=== PATIENT | male | born 1960 | race Caucasian/White ===

== ENCOUNTER 2024-08-08 18:40 | Inpatient (IN) ==
--- OUTSIDE RECORDS SUMMARY | 2024-08-08 18:44 | External Medical Summary | Summary of Care ---
Author Name Unknown Organization [facility] Address [address] [place] [address] Phone [phone] Care Team Providers Care Supervisor [employer] Name Role Phone Raj POOLE MD, Felix Hu Primary Care Provider [phone] Reason for Visit * Reason Onset Date Comments Forms Request 07/24/2024 Pt Home care vis it to change dressing was put in place by [facility] with [facility] Home care to coincide with in 48hrs from todays visit. Encounter Details Date Type Department Care Team (Late st Contact Info) Description 07/24/2024 Telephone Family Practice [facility] [address] [place] [address] Felix Anthony III, MD [address] [place] [address] Forms Request (Pt Home care visit to duarte... Allergies Active Allergy Reactions Criticality Noted Date Comments Morphine And Codeine 06/01/2003 severe vomiting Phenytoin Sodium 06/11/2008 itching documented as of this encounter (statuses as of 08/05/2024) Medications Continuous Blood Gluc Embalmer Assistant (EtogasYLE KWAN 14 DAY READER) DEVIIndications: Uncontrolled type 2 diabetes mellitus with insulin therapy,Type 2 diabetes mellitus with hemoglobin A1c goal of less than 7.0% (HCC),Hypoglycem ia Use as directed. Use it to scan the sensor as directed at least 5-6 times a day. Dx: E11.65 1 Device 9 Active Continuous Blood Gluc Sensor (FREESTYLE KWAN 14 DAY SENSOR) MISCIndications: Uncontrolled type 2 diabetes mellitus with insulin therapy,Type 2 diabetes mellitus with hemoglobin A1c goal of less than 7.0% ([facility]),Hypoglycem ia Use as directed. Change sensor every 14 days to check your blood sugar at least 5-6 times a day. DX: E11.65 6 Each 3 9 Active Insulin Glargine Solostar 100 UNIT/ML Subcutaneous Solution Pen-injectorIndi cations:Type 2 diabetes mellitus with hemoglobin A1c goal of less than 7.0% ([facility]),Type 2 diabetes mellitus with diabetic neuropathy, unspecified whether usp insulin use ([facility]),Type 2 diabetes mellitus with diabetic neuropathy, without long-term current use of insulin ([facility]),Type 2 diabetes mellitus with diabetic neuropathy, with long-term current use of insulin ([facility]) INJECT 40 UNITS UNDER THE SKIN EVERY MORNING 45 mL 3 4 Active Insulin Aspart FlexPen 100 UNIT/ML Subcutaneous Solution Pen-injectorIndi cations:Type 2 diabetes mellitus with hemoglobin A1c goal of less than 7.0% ([facility]),Type 2 diabetes mellitus with diabetic neuropathy, unspecified whether long term care pharmacist insulin use ([facility]),Type 2 diabetes mellitus with diabetic neuropathy, without long-term current use of insulin ([facility]),Type 2 diabetes mellitus with diabetic neuropathy, with long-term current use of insulin ([facility]) INJECT 44 UNITS WITH BREAKFAST, 48 UNITS WITH LUNCH, AND 45 UNITS WITH DINNER PLUS CORRECTION SCALE DIRECTED. MAX DAILY DOSE: 160 UNITS 135 mL 3 4 Active Lisinopril-hydro CHLOROthiazide 20-12.5 MG Oral TabletIndication s:HTN, goal below 140/80 Take 1 Tablet by mouth in the morning. 90 Tablet 3 4 Active metFORMIN HCl ER 500 MG Oral Tablet Extended Release 24 Hour (Glucophage XR)Indications:T ype 2 diabetes mellitus with hemoglobin A1c goal of less than 7.0% ([facility]) TAKE TWO TABLETS BY MOUTH TWICE A DAY WITH MEALS 360 Tablet 3 4 Active Additional Information Patient not taking.Reported on 07/24/2024 Pen [place] 31G X 5 MMIndications:Ty pe 2 diabetes mellitus with hemoglobin A1c goal of less than 7.0% ([facility]),Type 2 diabetes mellitus with diabetic neuropathy, with long-term current use of insulin (HCC) Use as directed 4 times a day. To inject insulin. 400 Each 3 4 Active Rosuvastatin Calcium 10 MG Oral Tablet (Crestor)Indicat ions:Dyslipidemi a, goal LDL below 100 Take 1 Tablet by mouth in the morning. 90 Tablet 3 4 Active Trulicity 4.5 MG/0.5ML Subcutaneous Solution Auto-injector (Dulaglutide)Ind ications:Type 2 diabetes mellitus with hemoglobin A1c goal of less than 7.0% ([facility]) Inject 4.5 mg under the skin once a week. 2 mL 12 07/22/2024 12:03 PM EST 5 Active Sulfamethoxazole -Trimethoprim 800-160 MG Oral Tablet (Bactrim DS) Take 1 Tablet by mouth 2 times a day. 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 DYSLIPIDEMIA, GOAL LDL BELOW 100 05/10/2009 Overview (05/10/2009): Per Lipid Taxonomy. Type 2 diabetes mellitus wit h hemoglobin A1c goal of less than 7.0% 03/10/2009 Overview (09/20/2015): Modified per Diabetes protocol #14. 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 Diabetic polyneuropathy 06/01/2003 Overview (08/12/2015): ICD-10 update of inactive term Hemorrhoids, external without complications 10/2003 HEARING LOSS NOS- bilat hearing aids 06/01/2003 documented as of this encounter (statuses as of 08/05/2024) Resolved Problems Problem Noted Date Diagnosed Date Resolved Date Stage 3 chronic kidney disease 03/21/2021 01/09/2024 Overview: Per CKD protocol Severe obesity with body mas s index (BMI) of 35.0 to 39.9 with serious comorbidity 08/22/2009 Overview (03/12/2018): Per Obesity Taxonomy ICD-10 update of inactive diagnosis HTN, GOAL BELOW 130/80 04/19/200901/16 Overview (04/19/2009): Modified per HTN protocol #16. Convulsions 09/02/2008 05/05/2021 ADVANCE DIRECTIVE INFORMATION 12/10/2005 03/30/2024 Overview (12/10/2005): Pt has living will. Advised to bring copy at next visit. DM type 2, not at goal 10/03/200403/10 Overview (03/10/2009): Modified per Diabetes protocol #14. OBESITY, UNSPECIFIED 10/03/2004 010 Overview (08/22/2009): Per Obesity Taxonomy Type 2 diabetes mellitus wit h hemoglobin A1c goal of less than 7.0% 06/01/2003 08/07/2007 Overview (09/20/2015): ICD-10 update of inactive term PURE HYPERCHOLESTEROLEM 06/01/200304/26 Overview (05/10/2009): Per Lipid Taxonomy. HYPERTENSION NOS 06/01/2003 04/19/2009 Overview (04/19/2009): Modified per HTN protocol #16. documented as of this encounter (statuses as of 08/05/2024) Immunizations Name Administration Dates Next Due COVID-19 mRNA, LNP-s, No Pre serve, 2-Dose Series (Moderna) 07/08/2020,06/10/2020 PPD 04/01/2023,09/14/2009,06/14/2009 Pneumococcal Conjugate Vacc, 13 Valent (Prevnar) 04/11/2017 Pneumococcal Conjugate Vacci ne, 20-valent ([id number]) 04/14/2024 RSV Vac., Recomb, Adjuvant, PF,0.5 Ml (Arexvy) 07/24/2024 Seasonal Influenza Vac., MDV , IM, 0.5 mL (Fluzone) 02/23/2014,03/12/2013,03/01/2010,2007(Deferred: Patient Refused),03/11/2006 Seasonal Influenza, High Dos e, Trivalent, PF, IM (Fluzone HD) 04/14/2024 Seasonal Influenza, PF, 6 M & above, IM , (FluLaval or Fluzone) 04/01/2023,05/29/2022,03/21/2021,2019,06/23/2018,06/11/2016,02/10/2016 Seasonal Influenza, Recombin ant, RIV4, PF, (Flublock) 03/12/2019 TDAP (age 10 and older)(Boostrix) 04/06/2013 TDAP, Age 7 and older, IM (Adacel) 02/21/2022 Zoster Vaccine Recombinant (Shingrix) 04/01/2023 documented as of this encounter Social History Tobacco Use Types Packs/Day Years Used Date Smoking Tobacco: Never Smokeless Tobacco: Never Alcohol Use Standard Drinks/Week Comments No 0 (1 standard drink = 0.6 oz pur e alcohol) PHQ-2 Answer Date Recorded PHQ Adult Total Score 0 07/24/2024 Hunger Vital Sign Answer Date Recorded Within the past 12 months, y ou worried that your food would run out before you got the money to buy more. Never true 07/24/19 25 Within the past 12 months, t he food you bought just didn't last and you didn't have money to get more. Never true 07/24/2024 Childcare Answer Date Recorded Do you feel overwhelmed with taking care of a child, family member or friend? No 07/24/2024 Does your family need help f inding childcare? (Household - for ages 0-17 years) Not on file 07/24/2024 Clothing Answer Date Recorded Have you been unable to get clothing when it was really needed? Yes 07/24/2024 Is your family able to get c lothes or diapers when needed? (Household - for ages 0-17 years) Not on file 07/24/2024 Personal Safety Answer Date Recorded Do you feel unsafe or have concerns for your saf ety? No 07/24/2024 Do you have concerns for you r family's safety? (Household - for ages 0-17 years) Not on file 07/24/2024 Utilities Answer Date Recorded Do you have trouble paying y our heating, water, or electric bill? No 07/24/2024 Is your family able to pay t he heat, water, or electric bill? (Household - for ages 0-17 years) Not on file 07/24/2024 Does your family have access to good internet? (Household - for ages 0-17 years) Not on file 07/24/2024 Employment Status Answer Date Recorded Are you unemployed or without regular income? No 07/24/2024 Does the household have a re gular source of income? (Household - for ages 0-17 years) Not on file 07/24/2024 Social Connections Answer Date Recorded How often do you feel lonely or isolated from th ose around you? Never 07/24/2024 Financial Resource Strain Answer Date R ecorded Do you have any trouble payi ng for your medications, or do you think you might in the future? No 07/24/2024 Does your family have troubl e paying for medicine? (Household - for ages 0-17 years) Not on file 07/24/2024 Transportation Needs Answer Date Record ed Do you have trouble getting a ride to medical visits or work? (Adult - for ages 18 years and over) Not on file 07/24/2024 Does your family have a hard time getting a ride to doctors visits? (Household - for ages 0-17 years) Not on file 07/24/2024 Has lack of transportation k ept you from medical appointments, meetings, work, or from getting things needed for daily living? Check all that apply. No 07/24/2024 Do you (or your family) have trouble finding or paying for a ride (transportation)? (Household - for ages 0-17 years) Not on file 07/24/2024 Housing Stability Answer Date Recorded Do you currently live in a s helter or have no steady place to sleep at night? No 07/24/2024 Do you think you are at risk of becoming homeless? (Adult - for ages 18 years and over) Not on file 07/24/2024 Does your family worry about paying for your home or becoming homeless? (Household - for ages 0-17 years) Not on file 0 07/24/2024 Are you homeless or worried that you might be in the future? No 07/24/2024 Are you (or your family) suly eless or worried that you might be in the future? (Household - for ages 0-17 years) Not on file Food Insecurity Answer Date Recorded Within the past 12 months, y ou worried that your food would run out before you got the money to buy more. Never true 07/24/19 25 Within the past 12 months, t he food you bought just didn't last and you didn't have money to get more. Never true 07/24/2024 Do you need food for this week? No 07/24/2024 Sex and Gender Information Value Date Recorded Sex Assigned at Male 01/29/2023 3:07 PM EDT Legal Sex Male 6:14 AM EST Gender Identity Male 01/29/2023 3:07 PM EDT Sexual Orientation Straight 01/29/2023 3: 07 PM EDT Occupation Industry Job Start Date Job End Date Not on file Not on file Not on file Not on file documented as of this encounter Miscellaneous Notes * Telephone Encounter - Piyush Kaur CMA - 07/24/2024 11:30 AM EST Pt presented with a dressed wound on a toe on his left foot that was cleaned and dressed. Pt statedthat he was treated on 07/22/24 at [facility]. Pt stated that he was told an order would be put in place to have his dressing changed but did no hear anything from the Home care agency as of yet. Dr. Anthony asked that we inquire when those services would be put in place to which I called [facility] and was told that [facility] home care would be providing the service. I then called [facility] and was told their intake dept just received that order and it would be put in place with in 48hrs. documented in this encounter Plan of Treatment Upcoming Encounters Date Type Department Care Team (Late st Contact Info) Description 08/17/2024 9:30 AM EDT Telemedicine Pharmacy, [facility] [address] [facility] [place] [address] Pharmacist1, [facility] [address] [facility] [place] [address] 01/26/2025 9:00 AM EDT Office Visit Pharmacy, [facility] [address] [facility] [place] [address] Pharmacist1, [facility] [address] [place] [address] 01/26/2025 9:40 AM EDT Office Visit Family Practice [facility] [address] [facility] [place] [address] Felix Anthony III, MD [address] [facility] [place] [address] Health Maintenance Due Date Last Done Comments HIV Screening 1975 Colonoscopy 01/22/2004 Fecal Occult Blood Test 01/22/2004 Sigmoidoscopy 01/22/2004 Diabetic Foot Exam 01/19/2023 01/19/2022, 0 06/13/2010, 09/14/2009, Additional history exists Zoster Vaccines (2 of 2) 05/27/2023 04/01/2023 COVID-19 Vaccine ( season) 2024 07/08/2020, 06/10/2020 Diabetic Eye Exam 12/15/2024 12/16/2023, , 12/16/2023, Additional history exists Albumin/Creatinine Ratio 01/01/2025 024, 08/27/2022, 06/04/2022, Additional history exists B-12 01/01/2025 01/02/2024, 01/2023, 03/21/2021 CKD PHOS USE SMARTSET 54500 01/01/2025 080 12/2023, 06/04/2022, 10/18/2021 GFR 01/19/2025 07/22/2024, 0 12/2023, 08/27/2022, Additional history exists HbA1c 01/19/2025 07/22/2024, 03/27, 01/02/2024, Additional history exists CKD HGB USE SMARTSET 85104 07/22/202507/22, 01/02/2024, 06/04/2022, Additional history exists Depression Screening 07/24/2025 07/24/2024 Cologuard 05/12/2027 05/12/2024, 04/26, 05/05/2024, Additional history exists Colorectal Cancer Screening 05/12/2027 Lipid Panel 01/01/2029 01/02/2024, 01/2023, 03/21/2021, Additional history exists DTap/Tdap Vaccines (3 - Td or Tdap) 02/22/2032 02/21/2022, 04/06/2013, 05/27/2004 Influenza Vaccine (FLU shot) Completed , 04/01/2023, 05/29/2022, Additional history exists Pneumococcal Vaccine: 50+ Years Completed 04/14/2024, 04/11/2017, 05/24/2003 HPV (Gardasil) Vaccine Aged Out No lo nger eligible based on patient's age to complete this topic Hepatitis B Vaccine Aged Out No longe r eligible based on patient's age to complete this topic MENINGOCOCCAL (MENACTRA/MENVEO) Aged Out No longer eligible based on patient's age to complete this topic Meningitis B Vaccine (Bexsero/Trumemba) Aged Out No longer eligible based on patient's age to complete this topic documented as of this encounter Medical Devices Not on filedocumented as of this encounter Care Teams Supervisor [employer] Relationship Specialty Start Date End Date Felix Anthony III, MD [address] [place] [address] PCP - General Family Medicine 03/21/21 documented as of this encounter
--- OUTSIDE RECORDS SUMMARY | 2024-08-08 18:44 | External Medical Summary | Summary of Care ---
Author Name Unknown Organization [facility] Address [address] [place] [address] Phone [phone] Care Team Providers Care Wheelage Clerk Name Role Phone Raj POOLE MD, Felix Hu Primary Care Provider [phone] Encounter Details Date Type Department Care Team (Late st Contact Info) Description 08/03/2024 Orders Only Outcomes Research Department [address] [place] [address] Princess Alanis [facility] [employer] Other*[id number] Allergies Active Allergy Reactions Criticality Noted Date Comments Morphine And Codeine 06/01/2003 severe vomiting Phenytoin Sodium 06/11/2008 itching documented as of this encounter (statuses as of 08/03/2024) Medications Continuous Blood Gluc Bond Trader (FREESTYLE KWAN 14 DAY READER) DEVIIndications: Uncontrolled type [...] than 7.0% (HCC),Hypoglycem ia Use as directed. Change sensor every 14 days to check your blood sugar at least 5-6 times a day. DX: E11.65 6 Each 3 9 Active Insulin Glargine Solostar 100 UNIT/ML Subcutaneous Solution Pen-injectorIndi cations:Type 2 diabetes mellitus with hemoglobin A1c goal of less than 7.0% ([facility]),Type 2 diabetes mellitus with diabetic neuropathy, unspecified whether terminal superintendent insulin use ([facility]),Type 2 diabetes mellitus with diabetic neuropathy, without long-term current use of insulin ([facility]),Type 2 diabetes mellitus with diabetic neuropathy, with long-term current use of insulin ([facility]) INJECT 40 UNITS UNDER THE SKIN EVERY MORNING 45 mL 3 4 Active Insulin Aspart FlexPen 100 UNIT/ML Subcutaneous Solution Pen-injectorIndi cations:Type 2 diabetes mellitus with hemoglobin A1c goal of less than 7.0% ([facility]),Type 2 diabetes mellitus with diabetic neuropathy, unspecified whether senior living insulin use ([facility]),Type 2 diabetes mellitus with diabetic neuropathy, without long-term current use of insulin ([facility]),Type 2 diabetes mellitus with diabetic neuropathy, with long-term current use of insulin ([facility]) INJECT 44 UNITS WITH BREAKFAST, 48 UNITS [...] hemoglobin A1c goal of less than 7.0% ([facility]) TAKE TWO TABLETS BY MOUTH TWICE A DAY WITH MEALS 360 Tablet 3 4 Active Additional Information Patient not taking.Reported on 07/24/2024 Pen [place] 31G X 5 MMIndications:Ty pe 2 diabetes mellitus with hemoglobin A1c goal of less than 7.0% ([facility]),Type 2 diabetes mellitus with diabetic neuropathy, with long-term current use of insulin ([facility]) Use as directed 4 times a day. To inject insulin. 400 Each 3 4 Active Rosuvastatin Calcium 10 MG Oral Tablet (Crestor)Indicat ions:Dyslipidemi a, goal LDL below 100 Take 1 Tablet by mouth in the morning. 90 Tablet 3 4 Active Trulicity 4.5 MG/0.5ML Subcutaneous Solution Auto-injector (Dulaglutide)Ind ications:Type 2 diabetes mellitus with hemoglobin A1c goal of less than 7.0% (HCC) Inject 4.5 mg under the skin once a week. 2 mL 12 07/22/2024 12:03 PM EST 5 Active Sulfamethoxazole -Trimethoprim 800-160 MG Oral Tablet (Bactrim DS) Take 1 Tablet by mouth 2 times a day. 14 Tablet 07/22/2024 12:03 PM EST 5 Active LORazepam 0.5 MG Oral Tablet (Ativan) Take 1 Tablet by mouth 2 times a day as needed for Anxiety. One tablet 45 minutes before MRI 2 Tablet 5 Active documented as of this encounter (statuses as of 08/03/2024) Active Problems Problem Noted Date Diagnosed Date [...] as of this encounter (statuses as of 08/03/2024) Resolved Problems Problem Noted Date Diagnosed Date [...] as of this encounter (statuses as of 08/03/2024) Immunizations Name Administration Dates Next Due COVID-19 mRNA, LNP-s, No Pre serve, 2-Dose Series (Moderna) 07/08/2020,06/10/2020 PPD 04/01/2023,09/14/2009,06/14/2009 Pneumococcal Conjugate Vacc, 13 Valent (Prevnar) 04/11/2017 Pneumococcal Conjugate Vacci ne, 20-valent ([id number]) 04/14/2024 RSV Vac., Recomb, Adjuvant, PF,0.5 Ml [...] No 07/24/2024 Does the household have a [facility] source of income? (Household - for ages [...] on file documented as of this encounter Plan of Treatment Upcoming Encounters Date Type Department Care Team (Late st Contact Info) Description 08/17/2024 9:30 AM EDT Telemedicine Pharmacy, [facility] [address] [place] [address] Pharmacist1, [facility] [address] [place] [address] 01/26/2025 9:00 AM EDT Office Visit Pharmacy, [facility] [address] [facility] [address] [place] [address] Pharmacist1, [facility] [address] [facility] [place] [address] [address] 01/26/2025 9:40 AM EDT Office Visit Family Practice [facility] [address] [facility] [place] [address] Felix Anthony III, MD [address] [facility] [place] [address] Scheduled Orders Name Type Priority Associated Diagnoses Orde r Schedule MYCODE SUBSEQUENT ADULT Lab Routine MyCode Research Other*[id number] Every 6 Months for 2 Occurrences starting 08/03/2024 until 08/23/2025 Health Maintenance Due Date Last Done Comments HIV Screening 1975 Colonoscopy 01/22/2004 Fecal Occult Blood Test 01/22/2004 Sigmoidoscopy 01/22/2004 Diabetic Foot Exam 01/19/2023 01/19/2022, 0 06/13/2010, 09/14/2009, Additional history exists Zoster Vaccines (2 of 2) 05/27/2023 04/01/2023 COVID-19 Vaccine ( season) 2024 07/08/2020, 06/10/2020 Diabetic Eye Exam 12/15/2024 12/16/2023, , 12/16/2023, Additional history exists Albumin/Creatinine Ratio 01/01/2025 082 024, 08/27/2022, 06/04/2022, Additional history exists B-12 01/01/2025 01/02/2024, 01/2023, 03/21/2021 CKD PHOS USE SMARTSET 85777 01/01/2025 080 12/2023, 06/04/2022, 10/18/2021 GFR 01/19/2025 07/22/2024, 12/2023, 08/27/2022, Additional history exists HbA1c 01/19/2025 07/22/2024, 03/27, 01/02/2024, Additional history exists CKD HGB USE SMARTSET 56102 07/22/202507/225, 01/02/2024, 06/04/2022, Additional history exists Depression Screening [...] Not on filedocumented as of this encounter Visit Diagnoses Diagnosis MyCode Research Other*[id number] documented in this encounter Care Teams Wheelage Clerk Relationship Specialty Start Date End Date Felix Anthony III, MD [address] [place] [address] PCP - General Family Medicine 03/21/21 documented as of this encounter
--- NOTE | 2024-08-08 18:58 | Emergency Department Note ---
History of Present Illness General Chief complaint: Toe Injury/Pain Stated complaint: LT FOOT TOE INFECTION Time Seen by Provider: 08/08/24 18:46 History of Present Illness Maximum Pain Intensity: 9 This is a 64-year-old male who presents to the emergency department via private vehicle with complaints of "left second toe infection". The patient notes bone infection to the distal left second toe with need for likely partial amputation. He has been following locally with podiatry. He was last seen this past . He notes he did finish a course of oral antibiotics. No current oral antibiotic therapy. He notes today he developed chills throughout much of the day and then this afternoon began vomiting. He feels overall unwell. He notes progressive pain and swelling to the left second toe. The entire toe he notes is now red. He states that there is an open wound to the distal toe that the bone is visible through this opening. He states that on recent visit some small pieces of bone were sampled and sent for evaluation. He is a diabetic. He denies any known antibiotic allergies. Tetanus vaccine up-to-date per review of the EMR. Home Medications Medication Instructions Recorded Confirmed Type rosuvastatin 10 mg tablet 10 mg PO QAM 09/10/22 08/08/24 History insulin glargine 100 unit/mL 50 unit subcut QAM 12/10/23 08/08/24 History subcutaneous solution (Lantus U-100 Insulin) dulaglutide 4.5 mg/0.5 mL 4.5 mg subcut WK 08/08/24 08/08/24 History subcutaneous pen injector (Trulicity) insulin aspart U-100 100 unit/mL See Rx Instructions .Route .COMPLEX 08/08/24 08/08/24 History (3 mL) subcutaneous pen lisinopril 20 1 tab PO QAM 08/08/24 08/08/24 History mg-hydrochlorothiazide 12.5 mg tablet Allergies Allergy/AdvReac Type Severity Reaction Status Date / Time codeine AdvReac Mild GI UPSET Verified 08/08/24 19:48 acetaminophen [From Percocet] AdvReac Itching Verified 08/08/24 19:48 morphine AdvReac Vomiting Verified 08/08/24 19:48 oxycodone [From Percocet] AdvReac Itching Verified 08/08/24 19:48 Past Med/Surg History Problem List (Updated 08/08/24 @ 19:22 by Reynaldo Napier PA-C) Osteomyelitis of second toe of left foot (Acute) Cellulitis of second toe of left foot (Acute) Chronic venous insufficiency Abnormal ankle brachial index (Acute) Open wound of right lower leg (Acute) No significant past surgical history HTN (hypertension) (Chronic) DM (diabetes mellitus) (Chronic) Persistent vomiting (Acute) Vertigo (Acute) Medical History 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 Surgical History History of laparoscopic appendectomy Social History Smoking Status: Never smoker Do You Dip or Chew Tobacco: No; Hx Alcohol Use: Yes Alcohol type: beer Hx Substance Use: No Preferred Language: [place] Communication Ability: Effective Hearing Ability: Normal 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 Beliefs That Will Affect Care: None marital status: Current Living Situation: Spouse current occupational status: retired Other Information That Helps Us Care for You: No Feels Safe at Home: Yes Safety Concerns: Feels Safe At This Time Diet: regular caffeine: Yes during the past year weight has: decreased > 10 lbs Physical Activity Frequency: Does not Exercise Assistive Devices: Hearing Aid - Bilateral Review of Systems A total of 10 systems reviewed and were otherwise negative Physical Exam Vital Signs Vital Signs - 24 hr 08/08/24 18:42 08/08/24 20:40 Temperature 36.9 C Temperature Source Temporal Artery Scan Pulse Rate 97 H Pulse Rate [Finger] 91 H Respiratory Rate 16 18 Respiratory Effort / Characteristics Non-Labored Spontaneous Respiratory Depth Normal Blood Pressure 154/77 H Blood Pressure [Right Arm] 173/83 H Blood Pressure Mean 102 Blood Pressure Mean [Right Arm] 113 Pulse Oximetry 95 91 Oxygen Delivery Method Room Air Room Air Sepsis Recent Fever Within 48 Hours No Sepsis New/Unexplained Change in Mental Status No Sepsis Action Taken by Nursing No Action Required VITAL SIGNS - Vital signs and nursing notes were reviewed. Stable and afebrile. GENERAL -64-year-old male appearing his stated age who is in no acute distress. Communicates well with provider and answers questions appropriately. SKIN -left second toe is erythematous with an opening at the distalmost aspect consistent with ulceration with visible bone in this opening. Pictures were obtained and uploaded to the EMR and are as below. HEAD - NC/AT. EYES - Sclera anicteric. NECK - Neck with FROM. No nuchal rigidity. LUNGS - CTA CARDIAC - RRR ABDOMEN - Abdominal contour normal without pulsations or visible masses. BS normoactive all four quadrants. No tenderness, palpable masses, hepatosplenomegaly, or ascites noted. EXTREMITIES - No clubbing or peripheral cyanosis. Left second toe diffusely erythematous and edematous with a distal ulcer with visible bone deep in the channel. +5/5 strength noted in UE/LE bilaterally. NEUROLOGIC -decreased sensation to the bilateral feet region. PSYCH -alert, oriented and pleasant on exam Course Administered Medications Lisinopril/HCTZ (Lisinopril/Hctz 20/12.5mg 1 Tab Tab) 1 tab PO QAM NAYELI Stop: 09/08/24 08:59 Last Admin: 08/09/24 09:06 Dose: 1 tab Documented By: AMY Hydromorphone HCl (Hydromorphone Inj 0.5 Mg/0.5 Ml Syr) 0.5 mg IV Q6H PRN PRN Reason: Severe Pain (Scale 7, 8, 9,10) Stop: 08/22/24 22:12 Last Admin: 08/09/24 04:14 Dose: 0.5 mg Documented By: Admin: 08/08/24 22:53 Dose: 0.5 mg Documented By: EMELY Sodium Chloride (Nss) 1,000 mls @ 125 mls/hr IV .Q8H NAYELI Stop: 08/09/24 22:12 Last Admin: 08/09/24 10:07 Dose: 125 mls/hr Documented By: Infusion: 08/09/24 10:07 Dose: Infused Documented By: Admin: 08/08/24 22:52 Dose: 125 mls/hr Documented By: EMELY Cefepime HCl (Maxipime 2000mg) 2,000 mg in 20 mls @ 5 mls/min IV Q12H NAYELI; Protocol Stop: 08/16/24 07:59 Last Admin: 08/09/24 08:04 Dose: 5 mls/min Documented By: HRJada Vancomycin HCl (Vancomycin Hcl) 1,000 mg in 270 mls @ 200 mls/hr IV Q12H NAYELI; Protocol Stop: 08/16/24 09:59 Last Admin: 08/09/24 10:14 Dose: 200 mls/hr Documented By: HRB Magnesium Sulfate/Dextrose (Magnesium Sulfate / D5w) 1 gm in 100 mls @ 50 mls/hr IV Q2H NAYELI Stop: 08/09/24 11:59 Last Admin: 08/09/24 10:12 Dose: 50 mls/hr Documented By: Infusion: 08/09/24 10:12 Dose: Infused Documented By: Admin: 08/09/24 08:13 Dose: 50 mls/hr Documented By: HRB Promethazine HCl (Phenergan) 12.5 mg in 50.5 mls @ 202 mls/hr IV Q6H PRN PRN Reason: Nausea And Vomiting Stop: 09/08/24 08:21 Last Infusion: 08/09/24 09:40 Dose: Infused Documented By: Admin: 08/09/24 09:21 Dose: 202 mls/hr Documented By: HRB Insulin Aspart (Insulin Aspart Per Unit Charge) 0 units SC Q6 [facility] Stop: 09/08/24 00:00 Last Admin: 08/09/24 05:52 Dose: Not Given Documented By: Admin: 08/09/24 00:08 Dose: Not Given Documented By: CLARAM Insulin Glargine (Lantus Per Unit Charge) 25 units SQ DAILY [facility] Stop: 09/08/24 08:59 Last Admin: 08/09/24 09:02 Dose: 25 units Documented By: HRB Co-signed By: JENNIFER Ondansetron HCl (Ondansetron Inj 2 Mg/Ml 2 Ml Vial) 4 mg IV Q6H PRN PRN Reason: Nausea Stop: 09/07/24 22:12 Last Admin: 08/09/24 06:13 Dose: 4 mg Documented By: Admin: 08/08/24 22:52 Dose: 4 mg Documented By: EMELY Rosuvastatin Calcium (Rosuvastatin Calcium 10 Mg Tab) 10 mg PO QAM [facility] Stop: 09/08/24 08:59 Last Admin: 08/09/24 09:07 Dose: 10 mg Documented By: HRB Discontinued Medications Hydromorphone HCl (Hydromorphone Inj 0.5 Mg/0.5 Ml Syr) 0.25 mg IV NOW STA Stop: 08/08/24 18:55 Last Admin: 08/08/24 19:33 Dose: 0.25 mg Documented By: WALKER Hydromorphone HCl (Hydromorphone Inj 0.5 Mg/0.5 Ml Syr) 0.25 mg IV NOW STA Stop: 08/08/24 20:27 Last Admin: 08/08/24 20:30 Dose: 0.25 mg Documented By: GAYLE Cefepime HCl (Maxipime 2000mg) 2,000 mg in 20 mls @ 5 mls/min IV NOW STA; Protocol Stop: 08/08/24 18:55 Last Admin: 08/08/24 19:40 Dose: 5 mls/min Documented By: WALKER Vancomycin HCl 2,250 mg/ (Sodium Chloride) 545 mls @ 200 mls/hr IV NOW ONE Stop: 08/09/24 02:28 Last Infusion: 08/09/24 04:11 Dose: Infused Documented By: Admin: 08/09/24 01:07 Dose: 200 mls/hr Documented By: EMELY Insulin Aspart (Insulin Aspart Per Unit Charge) 0 units SC ACHS NAYELI Stop: 09/07/24 23:29 Last Admin: 08/08/24 23:44 Dose: Not Given Documented By: EMELY Miscellaneous (Patient's Height &/Or Weight Needed) 1 each N/A NOW STA Stop: 08/08/24 22:49 Last Admin: 08/08/24 23:44 Dose: Not Given Documented By: EMELY Ondansetron HCl (Ondansetron Inj 2 Mg/Ml 2 Ml Vial) 4 mg IV NOW STA Stop: 08/08/24 18:55 Last Admin: 08/08/24 19:33 Dose: 4 mg Documented By: WALKER Medical Decision Making Laboratory Data 08/09/24 05:47 08/09/24 05:47 Lab Results 08/08/24 Range/Units 19:31 WBC 9.02 (4.8-10.8) K/ul RBC 4.81 (4.70-6.10) M/uL Hgb 13.9 L (14.0-18.0) g/dl Hct 41.7 L (42.0-52.0) % MCV 86.7 (80.0-100.0) fL MCH 28.9 (25.0-34.0) pg MCHC 33.3 (32.0-36.0) g/dL RDW Std Deviation 43.5 (36.4-46.3) fL RDW Coeff of Miguel 13.9 (11.5-14.5) % Plt Count 115 L (130-400) K/uL MPV 11.9 (9.4-12.4) fL Immature Gran % (Auto) 0.3 % Neut % (Auto) 89.6 % Lymph % (Auto) 3.8 % [place] % (Auto) 4.2 % Eos % (Auto) 1.7 % Baso % (Auto) 0.4 % Neut # (Auto) 8.08 H (1.40-6.50) K/uL Lymph # (Auto) 0.34 L (1.20-3.40) K/uL [place] # (Auto) 0.38 (0.11-0.59) K/uL Eos # (Auto) 0.15 (0.00-0.50) K/uL Baso # (Auto) 0.04 (0.00-0.20) K/uL Immature Gran # (Auto) 0.03 (0.01-0.20) K/uL ESR 57 H (0-20) mm/hr Sodium 138 (136-145) mmol/L Potassium 4.8 (3.5-5.1) mmol/L Chloride 109 H (98-107) mmol/L Carbon Dioxide 22 (21-32) mmol/L Anion Gap 7 (3-11) BUN 55 H (6-23) mg/dl Creatinine 1.69 H (0.6-1.4) mg/dl Est Cr Clr Drug Dosing Not Reportable eGFR 44.50 BUN/Creatinine Ratio 32.5 H (10-20) Glucose 115 H (70-99(Fasting)) mg/dl Lactate 1.4 (0.4-2.0) mmol/L Calcium 9.5 (8.6-10.3) mg/dl Total Bilirubin 1.0 (0.2-1.0) mg/dl AST 63 H (13-39) U/L ALT 65 H (7-52) U/L Alkaline Phosphatase 92 (34-104) U/L C-Reactive Protein 5.67 H (0-0.5) mg/dl Total Protein 8.0 (6.0-8.3) gm/dl Albumin 4.0 (3.4-5.0) gm/dl Globulin 4.0 (2.5-4.0) gm/dl Albumin/Globulin Ratio 1.0 (0.9-2) Procalcitonin 0.57 H (0-0.5) ng/ml Imaging Data Radiologist's Impression: Foot X-Ray 08/08/24 18:52 Exam(s): XR LEFT FOOT, 3+ views EXAM: XR Left Foot Complete, 3 or More Views CLINICAL HISTORY: L 2nd toe infection. TECHNIQUE: Frontal, lateral and oblique views of the left foot. COMPARISON: No relevant prior studies available. FINDINGS: Soft tissue swelling surrounding distal aspect of the second digit. Demineralized distal phalanx greatest at the distal tuft and proximal metaphysis, consistent with osteomyelitis. Deformity of the mid diaphysis of the fifth metatarsal consistent with a chronic fracture. No acute fracture. Plantar calcaneal bone spur. Vascular calcifications. IMPRESSION: Soft tissue swelling surrounding distal aspect second digit consistent with cellulitis. Underlying partial destruction of the distal phalanx consistent with osteomyelitis. Old fracture mid diaphysis of the fifth metatarsal. Electronically signed by: Rocael Osorio M.D. 08/09/24 00:23 AM MDM Narrative Patient was seen and evaluated as above in room D03b. Review was performed of triage nursing notes and vital signs. I did review pertinent previous visits and patient history. After obtaining a thorough history and physical examination the above work up was performed. Patient presents for evaluation of ongoing left second toe issue noting now diffuse redness to the entire toe and significant pain. He notes the pain is the worst it has been. Today he developed chills and now vomiting. On my assessment there is a cellulitic toe with exposed bone distally. I am concerned that the patient's symptoms are all related to left second toe infection. Options of care were discussed with the patient. IV access with established. Labs were drawn. Left foot x-ray per my interpretation does reveal fragmentation and erosion of the left second toe concerning for osteomyelitis. I did review previous cultures. At 1 point he did grow out Pseudomonas from wounds as well as Staph aureus among other microbes per review of the EMR. These cultures for review appear to have been from the right leg. These are dated 2022 and 2023. Unfortunately, there is no discharge at this time from the toe or drainage to culture. Blood culture pending. For the present time I will cover with IV cefepime. I did review pathology report dated 07/30/2024 from specimen dated 07/29/2024. Final diagnosis from the L2nd toe bone biopsy was acute osteomyelitis and osteonecrosis. Patient denies any history of MRSA. I did order Dilaudid for pain (believes he has no reaction to this medication), Zofran for nausea. The patient certainly would benefit from hospitalization, IV antibiotic therapy. He may also require operative management. I did list the help of our pharmacy district manager to review the [facility] EMR for additional helpful visits. There was a skin document regarding patient's visit with podiatry dated 07/30/2024. Unfortunately this appears to be the newest visit available for review in the EMR but the patient notes he was seen this past . I discussed presentation with the hospitalist, Dr. Solorzano at 7:26 PM. Please refer to further documentation regarding his stay. GCS: 15 In the evaluation and treatment of this patient the following differential diagnoses were entertained: Cellulitis, osteomyelitis, necrotizing fasciitis, sprain, strain, fracture, among others. Impression & Plan Cellulitis of second toe of left foot, Osteomyelitis of second toe of left foot Discharge Plan Visit Data Chief Complaint: Toe Injury/Pain Stated Complaint: LT FOOT TOE INFECTION ED Provider: Eden Nick ED Midlevel Provider: Reynaldo Napier Discharge Problem: Cellulitis of second toe of left foot, Osteomyelitis of second toe of left foot Patient Disposition: Admitted As Inpatient Condition: Good Discharge Instructions Interventions: ED Discharge Assessment Last Done: 08/08/24 21:48
--- NOTE | 2024-08-08 19:05 | Emergency Department Note ---
ED Visit Note I was consulted by the Advanced Practice Provider, Reynaldo Napier PA-C. I performed a substantive portion of the visit. This includes aspects of: History: Patient is a 64-year-old male presenting with left second toe pain. Patient reports he has been following locally with podiatry for his left distal second toe infection. He states he was last seen this past and just finished a course of oral antibiotics. He is not currently on outpatient antibiotic therapy. He states that he has had chills and began vomiting today. He states he feels overall unwell. Reports increasing pain and swelling to the second left great toe. Patient is a type I diabetic. MDM: - Laboratory workup interpreted myself showed normal WBC; stable electrolytes; transaminitis (AST 63; ALT 65); elevated creatinine (Cr 1.69); thrombocytopenia (plt 115); normal lactate; elevated procalcitonin (0.57) - Toe appears infected and concern for osteomyelitis. Blood cultures were obtained. Patient was given 4 mg IV Zofran, 0.25 mg IV Dilaudid and started on IV cefepime. Will be admitted to hospitalist service for further evaluation and management. .
[2024-08-08] MEDS: HYDROmorphone INJ 0.5 MG/0.5 ML SYR IV STA ×2 (19:33→20:30)
[2024-08-08] MEDS: ONDANSETRON INJ 2 MG/ML 2 ML VIAL IV STA (19:33)
[2024-08-08] MEDS: CEFEPIME 2000MG 2,000 MG/20 ML SYR IV STA (19:40)
[2024-08-08 19:50] LABS: Basophils # (auto) 0.04 K/uL (0.00-0.20); Basophils % (auto) 0.4 %; Eosinophils # (auto) 0.15 K/uL (0.00-0.50); Eosinophils % (auto) 1.7 %; Hematocrit (blood only) 41.7 % (42.0-52.0); Hemoglobin 13.9 g/dl (14.0-18.0); Immature Granulocytes # (auto) 0.03 K/uL (0.01-0.20); Immature Granulocytes % (auto) 0.3 %; Lymphocytes # (auto) 0.34 K/uL (1.20-3.40); Lymphocytes % (auto) 3.8 %; Mean Corpuscular Hemoglobin 28.9 pg (25.0-34.0); Mean Corpuscular Hgb Conc 33.3 g/dL (32.0-36.0); Mean Corpuscular Volume 86.7 fL (80.0-100.0); Mean Platelet Volume 11.9 fL (9.4-12.4); Monocytes # (auto) 0.38 K/uL (0.11-0.59); Monocytes % (auto) 4.2 %; Neutrophils # (auto) 8.08 K/uL (1.40-6.50); Neutrophils % (auto) 89.6 %; Platelet Count 115 K/uL (130-400); RDW Coefficient of Variation 13.9 % (11.5-14.5); RDW Standard Deviation 43.5 fL (36.4-46.3); Red Blood Count 4.81 M/uL (4.70-6.10); White Blood Count 9.02 K/ul (4.8-10.8)
[2024-08-08 20:04] LABS: Alanine Aminotransferase 65 U/L (7-52); Alkaline Phosphatase 92 U/L (34-104); Anion Gap 7 (3-11); Aspartate Aminotransferase 63 U/L (13-39); BUN Creatinine Ratio 32.5 (10-20); Blood Urea Nitrogen 55 mg/dl (6-23); Calcium 9.5 mg/dl (8.6-10.3); Carbon Dioxide 22 mmol/L (21-32); Chloride 109 mmol/L (98-107); Glucose 115 mg/dl (70-99(Fasting)); Potassium 4.8 mmol/L (3.5-5.1); Sodium 138 mmol/L (136-145)
--- NOTE | 2024-08-08 21:43 | History & Physical Report ---
Date of Service August 08, 2024 Assessment & Plan (1) Osteomyelitis of second toe of left foot: Plan: 64-year-old male with past med history significant for type 2 diabetes, diabetic polyneuropathy, dyslipidemia, diabetic retinopathy, CKD stage III, hypertension, left foot drop, bilateral hearing loss and on hearing aids, left eye cataract, thrombocytopenia, varicose veins of left lower extremity presents with ongoing infection of left second toe. Patient says having this infection ongoing for 3 weeks. Following with podiatry. Finished Bactrim course a week ago. Was feeling better this week, even went for bowling on Saturday and Saturday. But today he started have a lot of pain in the left second toe and was having chills and nausea and was not feeling better so came to the ER today. Patient also seems to have biopsy of the site on July 30 and pathology in our system showing osteomyelitis and osteonecrosis. Denies any chest pain. No shortness of breath. No cough. No headache. No runny nose or sore throat. No abdominal pain. Normal bowel and bladder movements. Hemodynamics are okay. 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 Osteomyelitis of second toe of left foot Diabetic foot infection Previous cultures grew staph and Pseudomonas Empirically started on cefepime and vancomycin with renal dosing N.p.o. after midnight for now Fluids Pain control Podiatry consult in a.m. for further recommendation Diabetes Cuting long-acting insulin to 25 units a.m. as currently on p.o. Sliding scale Glycemic pharmacy consults Will follow HbA1c levels Hypertension On lisinopril and hydrochlorothiazide Will monitor CKD stage III Creatinine 1.6 seems to be around baseline Will follow labs Dyslipidemia On rosuvastatin Thrombocytopenia Platelets 115 Will monitor DVT prophylaxis SCDs Disposition Medical floor Full code History of Present Illness Chief Complaint: Left second toe infection Primary Care Provider: Felix Anthony MD 64-year-old male with past med history significant for type 2 diabetes, diabetic polyneuropathy, dyslipidemia, diabetic retinopathy, CKD stage III, hypertension, left foot drop, bilateral hearing loss and on hearing aids, left eye cataract, thrombocytopenia, varicose veins of left lower extremity presents with ongoing infection of left second toe. Patient says having this infection ongoing for 3 weeks. Following with podiatry. Finished Bactrim course a week ago. Was feeling better this week, even went for bowling on Saturday and Saturday. But today he started have a lot of pain in the left second toe and was having chills and nausea and was not feeling better so came to the ER today. Patient also seems to have biopsy of the site on July 30 and pathology in our system showing osteomyelitis and osteonecrosis. Denies any chest pain. No shortness of breath. No cough. No headache. No runny nose or sore throat. No abdominal pain. Normal bowel and bladder movements. Hemodynamics are okay. 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 Past medical history. As mentioned above Past surgical history. Contour benign facial bone lesion history. Facial tumor removed left facial paresthesia stool. Bilateral cataracts. Repeat ocular right lateral collateral elbow ligament. Appendectomy. Vasectomy. Social history. . No smoking. No alcohol use. No drug use. Family history. Father had diabetes. Hypertension. Mother had hypertension. Stroke. Maternal grandfather had prostate cancer. Allergies Allergy/AdvReac Type Severity Reaction Status Date / Time codeine AdvReac Mild GI UPSET Verified 08/08/24 19:48 acetaminophen [From Percocet] AdvReac Itching Verified 08/08/24 19:48 morphine AdvReac Vomiting Verified 08/08/24 19:48 oxycodone [From Percocet] AdvReac Itching Verified 08/08/24 19:48 Home Medications Medication Instructions Recorded Confirmed Type rosuvastatin 10 mg tablet 10 mg PO QAM 09/10/22 08/08/24 History insulin glargine 100 unit/mL 50 unit subcut QAM 12/10/23 08/08/24 History subcutaneous solution (Lantus U-100 Insulin) dulaglutide 4.5 mg/0.5 mL 4.5 mg subcut WK 08/08/24 08/08/24 History subcutaneous pen injector (Trulicity) insulin aspart U-100 100 unit/mL See Rx Instructions .Route .COMPLEX 08/08/24 08/08/24 History (3 mL) subcutaneous pen lisinopril 20 1 tab PO QAM 08/08/24 08/08/24 History mg-hydrochlorothiazide 12.5 mg tablet Past Med/Surg History Problem List (Updated 08/08/24 @ 19:22 by Reynaldo Napier PA-C) Osteomyelitis of second toe of left foot (Acute) Cellulitis of second toe of left foot (Acute) Chronic venous insufficiency Abnormal ankle brachial index (Acute) Open wound of right lower leg (Acute) No significant past surgical history HTN (hypertension) (Chronic) DM (diabetes mellitus) (Chronic) Persistent vomiting (Acute) Vertigo (Acute) Medical History 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 Surgical History History of laparoscopic appendectomy Social History Smoking Status: Never smoker Do You Dip or Chew Tobacco: No; Hx Alcohol Use: Yes Alcohol type: beer Hx Substance Use: No Preferred Language: Peruvian Communication Ability: Effective Hearing Ability: Normal Residential Advisor Required: No Beliefs That Will Affect Care: None marital status: Current Living Situation: Spouse current occupational status: retired Other Information That Helps Us Care for You: No Feels Safe at Home: Yes Safety Concerns: Feels Safe At This Time Diet: regular caffeine: Yes during the past year weight has: decreased > 10 lbs Physical Activity Frequency: Does not Exercise Assistive Devices: Hearing Aid - Bilateral Review of Systems Review of Systems: All systems reviewed & are unremarkable except as noted in HPI & below Physical Exam Physical Exam: General-Not in distress Head- atraumatic Eyes- PERRL. ENT- oropharynx clear Neck- supple, no JVD. Lungs- clear to auscultation no wheezing or crackles Heart- regular rate and rhythm; no murmur, no gallop. Abdomen- normal bowel sounds, soft, nontender, no distension Extremities- Left foot in dressing, no edema seen Neuro- alert, oriented PERRL, Left facial palsy; no dysarthria; moves extremities Results & Data Results & Data Vital Signs (Past 12 Hours) Vital Signs Temp Pulse Pulse Resp BP BP Pulse Ox 08/08/24 20:40 91 H 18 173/83 H 91 08/08/24 18:42 36.9 C 97 H 16 154/77 H 95 O2 Del Method 08/08/24 20:40 Room Air 08/08/24 18:42 Room Air Diagnostic Findings Laboratory Results WBC 9.02 K/ul (4.8-10.8) 08/08/24: RBC 4.81 M/uL (4.70-6.10) 08/08/24: Hgb 13.9 g/dl (14.0-18.0) L 08/08/24: Hct 41.7 % (42.0-52.0) L 08/08/24: MCV 86.7 fL (80.0-100.0) 08/08/24: MCH 28.9 pg (25.0-34.0) 08/08/24: MCHC 33.3 g/dL (32.0-36.0) 08/08/24 RDW Std Deviation 43.5 fL (36.4-46.3) 08/08/24 RDW Coeff of Miguel 13.9 % (11.5-14.5) 08/08/24 Plt Count 115 K/uL (130-400) L 08/08/24 MPV 11.9 fL (9.4-12.4) 08/08/24 Immature Gran % (Auto) 0.3 % 08/08/24: Neut % (Auto) 89.6 % 08/08/24: Lymph % (Auto) 3.8 % 08/08/24 [place] % (Auto) 4.2 % 08/08/24 Eos % (Auto) 1.7 % 08/08/24 Baso % (Auto) 0.4 % 08/08/24 Neut # (Auto) 8.08 K/uL (1.40-6.50) H 08/08/24 Lymph # (Auto) 0.34 K/uL (1.20-3.40) L 08/08/24 [place] # (Auto) 0.38 K/uL (0.11-0.59) 08/08/24 Eos # (Auto) 0.15 K/uL (0.00-0.50) 08/08/24 Baso # (Auto) 0.04 K/uL (0.00-0.20) 08/08/24 Immature Gran # (Auto) 0.03 K/uL (0.01-0.20) 08/08/24 19:31 ESR 57 mm/hr (0-20) H 08/08/24 19:31 Sodium 138 mmol/L (136-145) 08/08/24 19:31 Potassium 4.8 mmol/L (3.5-5.1) 08/08/24 19:31 Chloride 109 mmol/L (98-107) H 08/08/24 19:31 Carbon Dioxide 22 mmol/L (21-32) 08/08/24 19:31 Anion Gap 7 (3-11) 08/08/24 19:31 BUN 55 mg/dl (6-23) H 08/08/24 19:31 Creatinine 1.69 mg/dl (0.6-1.4) H 08/08/24 19:31 Est Cr Clr Drug Dosing Not Reportable 08/08/24 19:31 eGFR 44.50 08/08/24 19:31 BUN/Creatinine Ratio 32.5 (10-20) H 08/08/24 19:31 Glucose 115 mg/dl (70-99(Fasting)) H 08/08/24 19:31 Lactate 1.4 mmol/L (0.4-2.0) 08/08/24 19:31 Calcium 9.5 mg/dl (8.6-10.3) 08/08/24 19:31 Total Bilirubin 1.0 mg/dl (0.2-1.0) 08/08/24 19:31 AST 63 U/L (13-39) H 08/08/24 19:31 ALT 65 U/L (7-52) H 08/08/24 19:31 Alkaline Phosphatase 92 U/L (34-104) 08/08/24 19:31 Total Protein 8.0 gm/dl (6.0-8.3) 08/08/24 19:31 Albumin 4.0 gm/dl (3.4-5.0) 08/08/24 19: Globulin 4.0 gm/dl (2.5-4.0) 08/08/24 19:31 Albumin/Globulin Ratio 1.0 (0.9-2) 08/08/24 19:31 Procalcitonin 0.57 ng/ml (0-0.5) H 08/08/24 19:31 Code Status & VTE Plan VTE Prophylaxis Plan VTE Prophylaxis will be ordered: Yes
[2024-08-08] MEDS ORDERED: GLUCOSE 40% GEL 15 GM TUBE PO PRN (22:13)
[2024-08-08] MEDS ORDERED: VANCOMYCIN CONSULT ACTIVE PRN (22:13)
[2024-08-08] MEDS ORDERED: HYDROmorphone INJ 0.5 MG/0.5 ML SYR IV PRN (22:13)
[2024-08-08] MEDS ORDERED: PHARMACY GLYCEMIC MGMT CONSULT PRN (22:13)
[2024-08-08] MEDS ORDERED: CARBOHYDRATES FOR HYPOGLYCEMIA PO PRN (22:13)
[2024-08-08] MEDS ORDERED: GLUCOSE 10 TAB/TUBE PO PRN (22:13)
[2024-08-08] MEDS ORDERED: DEXTROSE 50% 50 ML SYRINGE IV PRN (22:13)
[2024-08-08] MEDS ORDERED: GLUCAGON FOR INJ 1 MG VIAL SQ PRN (22:13)
[2024-08-08 22:17] LABS: C Reactive Protein 5.67 mg/dl (0-0.5)
[2024-08-08] MEDS: SODIUM CHLORIDE 0.9% 1,000 ML IV SCH (22:52)
[2024-08-08] MEDS: ONDANSETRON INJ 2 MG/ML 2 ML VIAL IV PRN (22:52)
[2024-08-08] MEDS: HYDROmorphone INJ 0.5 MG/0.5 ML SYR IV PRN (22:53)
[2024-08-08] MEDS: INSULIN ASPART PER UNIT CHARGE SC SCH (23:44)
[2024-08-08] MEDS: Patient's HEIGHT &/or WEIGHT Needed STA (23:44)
[2024-08-08] MEDS ORDERED: Nursing to Pharmacy Communication SCH (23:45)
[2024-08-09] MEDS: INSULIN ASPART PER UNIT CHARGE SC SCH ×2 (00:08→12:53)
--- NOTE | 2024-08-09 00:24 | XRay Report ---
Exam(s): XR LEFT FOOT, 3+ views EXAM: XR Left Foot Complete, 3 or More Views CLINICAL HISTORY: L 2nd toe infection. TECHNIQUE: Frontal, lateral and oblique views of the left foot. COMPARISON: No relevant prior studies available. FINDINGS: Soft tissue swelling surrounding distal aspect of the second digit. Demineralized distal phalanx greatest at the distal tuft and proximal metaphysis, consistent with osteomyelitis. Deformity of the mid diaphysis of the fifth metatarsal consistent with a chronic fracture. No acute fracture. Plantar calcaneal bone spur. Vascular calcifications. IMPRESSION: Soft tissue swelling surrounding distal aspect second digit consistent with cellulitis. Underlying partial destruction of the distal phalanx consistent with osteomyelitis. Old fracture mid diaphysis of the fifth metatarsal. Electronically signed by: Rocael Osorio M.D. 08/09/24 00:23 AM
[2024-08-09] MEDS: VANCOMYCIN HCL 2,250 MG in SODIUM CHLORIDE 0.9% 500 ML IV ONE (01:07)
[2024-08-09 07:04] LABS: Calcium 8.2 mg/dl (8.6-10.3); Creatinine Clr Calc Pharmacy 69.3 ml/min; Magnesium 1.3 mg/dl (1.7-2.4); Potassium 4.6 mmol/L (3.5-5.1)
[2024-08-09 07:20] LABS: Basophils # (auto) 0.02 K/uL (0.00-0.20); Basophils % (auto) 0.3 %; Eosinophils # (auto) 0.17 K/uL (0.00-0.50); Eosinophils % (auto) 2.6 %; Hematocrit (blood only) 36.3 % (42.0-52.0); Hemoglobin 11.7 g/dl (14.0-18.0); Immature Granulocytes # (auto) 0.02 K/uL (0.01-0.20); Immature Granulocytes % (auto) 0.3 %; Lymphocytes % (auto) 6.1 %; Mean Corpuscular Hemoglobin 28.1 pg (25.0-34.0); Mean Corpuscular Hgb Conc 32.2 g/dL (32.0-36.0); Mean Corpuscular Volume 87.1 fL (80.0-100.0); Mean Platelet Volume 12.5 fL (9.4-12.4); Monocytes # (auto) 0.51 K/uL (0.11-0.59); Monocytes % (auto) 7.8 %; Neutrophils # (auto) 5.42 K/uL (1.40-6.50); Neutrophils % (auto) 82.9 %; Platelet Count 89 K/uL (130-400); Platelet Estimate Decreased (Normal); RDW Coefficient of Variation 13.9 % (11.5-14.5); RDW Standard Deviation 43.7 fL (36.4-46.3); Red Blood Count 4.17 M/uL (4.70-6.10); White Blood Count 6.54 K/ul (4.8-10.8)
[2024-08-09] MEDS: CEFEPIME 2000MG 2,000 MG/20 ML SYR IV SCH (08:04)
[2024-08-09] MEDS: MAGNESIUM SULFATE / D5W 1 GM/100 ML BAG IV SCH (08:13)
[2024-08-09 08:33] LABS: Estimated Average Glucose 192 mg/dl; Hemoglobin A1C 8.3 % (4.5-5.6)
[2024-08-09] MEDS: LANTUS PER UNIT CHARGE SQ SCH (09:02)
[2024-08-09] MEDS: LISINOPRIL/HCTZ 20/12.5MG 1 TAB TAB PO SCH (09:06)
[2024-08-09] MEDS: ROSUVASTATIN CALCIUM 10 MG TAB PO SCH (09:07)
[2024-08-09] MEDS: PROMETHAZINE 12.5 MG/50.5 ML BAG IV PRN (09:21)
--- NOTE | 2024-08-09 09:33 | Pharmacy Report ---
Pharmacy PK ABX Note - Date of Service August 09, 2024 - Assessment and Plan Assessment 64 year old M receiving vancomycin and cefepime for treatment of left second toe osteomyelitis. Blood cultures pending. Completed a course of Bactrim 1 week ago. Podiatry consulted. SCr 1.69 --> 1.4 (CKD III). Day #1 of antimicrobial therapy. Plan Vancomycin * Loading dose: 2250 mg IV x 1 * Maintenance dose: 1000 mg IV every 12 hours * Regimen is predicted to achieve target AUC/MONTANA of 400-600 mg/L.hr * Random level tomorrow AM Pharmacy will continue to follow and will adjust dose/frequency as necessary. Thank you. Pharmacy has transitioned to AUC monitoring for vancomycin. AUC/MONTANA is the preferred PK/PD target and is associated with decreased risk of nephrotoxicity compared to traditional trough targets.
[2024-08-09] MEDS: VANCOMYCIN HCL 1,000 MG/270 ML BAG IV SCH (10:14)
--- NOTE | 2024-08-09 12:11 | Electrocardiogram Report ---
Test Reason : Blood Pressure : */* mmHG Vent. Rate : 89 BPM Atrial Rate : 89 BPM P-R Int : 164 ms QRS Dur : 96 ms QT Int : 366 ms P-R-T Axes : 27 -12 -7 degrees QTcB Int : 445 ms Normal sinus rhythm Minimal voltage criteria for LVH, may be normal variant Cannot rule out Anterior infarct , age undetermined Abnormal ECG Confirmed by Gelacio Holden ([id number]) on 08/09/2024 12:11:37 PM Referred By: REFERRED SELF Confirmed By: Gelacio Holden
--- NOTE | 2024-08-09 12:20 | Hospitalist Progress Note ---
Date of Service August 09, 2024 Assessment & Plan (1) Osteomyelitis of second toe of left foot: Plan: 64-year-old male with past med history significant for type 2 diabetes, diabetic polyneuropathy, dyslipidemia, diabetic retinopathy, CKD stage III, hypertension, left foot drop, bilateral hearing loss and on hearing aids, left eye cataract, thrombocytopenia, varicose veins of left lower extremity presents with ongoing infection of left second toe that has been ongoing for 3 weeks. Osteomyelitis of second toe of left foot Diabetic foot infection Previous cultures grew staph and Pseudomonas Continue cefepime and vancomycin Discussed with Belt S[facility] Dr Su who is planning possible OR tomorrow Will keep NPO PMN for possible OR Diabetes Continue lantus 25U today. Will adjust dose post op Continue sliding scale HbA1c 8.3 Hypertension On lisinopril and hydrochlorothiazide Will monitor CKD stage III Creatinine 1.4 today Hypomagnesemia Mag is 1.3 today Replete and monitor Dyslipidemia On rosuvastatin Thrombocytopenia Platelets 89 Will monitor DVT prophylaxis SCDs Full code I spent a total of 50 minutes coordinating, documenting and providing care for this patient excluding time spent in performance of separately billed services Admission and Anticipated Discharge Date Admission Date: August 08, 2024 Subjective Patient seen and examined Reports left 2nd toe pain Reported nausea earlier but none at this time Reports chronic neuropathy Physical Exam 2 Constitutional: + well hydrated; no acute distress Chronic left facial droop Eyes: PERRL, conjunctivae normal, anicteric sclerae ENMT: external ear and nose normal, oropharynx normal Respiratory: normal respiratory effort, lungs clear to auscultation Cardiovascular: Rate/Rhythm: regular rate and regular rhythm Gastrointestinal (Abdomen): normal bowel sounds, soft, nontender, no hepatosplenomegaly Musculoskeletal: Left 2nd toe wound Neurologic: PERRL, EOMI, accommodation nl, no face palsy, no dysarthria Psychiatric: A+Ox3, euthymic affect Results & Data Results & Data Vital Signs (Past 12 Hours) Vital Signs Temp Pulse Resp BP Pulse Ox O2 Del Method 08/09/24 07:49 36.7 C 77 16 153/79 H 93 Room Air Laboratory Results Abnormal lab results 08/08/24 08/09/24 08/09/24 Range/Units 19:31 05:47 11:46 RBC 4.17 L (4.70-6.10) M/uL Hgb 13.9 L 11.7 L (14.0-18.0) g/dl Hct 41.7 L 36.3 L (42.0-52.0) % Plt Count 115 L 89 L (130-400) K/uL MPV 12.5 H (9.4-12.4) fL Neut # (Auto) 8.08 H (1.40-6.50) K/uL Lymph # (Auto) 0.34 L 0.40 L (1.20-3.40) K/uL Platelet Estimate Decreased L (Normal) ESR 57 H (0-20) mm/hr Sodium 135 L (136-145) mmol/L Chloride 109 H 111 H (98-107) mmol/L Carbon Dioxide 20 L (21-32) mmol/L BUN 55 H 49 H (6-23) mg/dl Creatinine 1.69 H (0.6-1.4) mg/dl BUN/Creatinine Ratio 32.5 H 35.0 H (10-20) Glucose 115 H 165 H (70-99(Fasting)) mg/dl POC Glucose 165 H 190 H (70-99) mg/dl Hemoglobin A1c 8.3 H (4.5-5.6) % Calcium 8.2 L (8.6-10.3) mg/dl Magnesium 1.3 L (1.7-2.4) mg/dl AST 63 H (13-39) U/L ALT 65 H (7-52) U/L C-Reactive Protein 5.67 H (0-0.5) mg/dl Procalcitonin 0.57 H (0-0.5) ng/ml
--- NOTE | 2024-08-09 15:30 | Pharmacy Report ---
Pharmacy Glycemic Short Note 2 - Date of Service August 09, 2024 - Glycemic Short BSG Results (Last 24 hours): 08/08/24 08/09/24 08/09/24 19:31 05:47 11:46 Glucose 115 H 165 H POC Glucose 165 H 190 H OUTPATIENT ANTIDIABETIC REGIMEN: * Lantus 50 units SC qAM * Novolog SC with meals * Dulaglutide 4.5 mg SC weekly A1c = 8.3% (08/09/24) ASSESSMENT: * WH is a 64 yo T2DM who presented with ongoing infection of left second toe. * Patient has been started on broad spectrum antibiotics. Podiatry consulted. * Home dose of Lantus was reduced by 50% on admission for NPO status. Patient w as ordered a diet for lunch + dinner, then will resume NPO this evening. * BSGs acceptable thus far on current insulin orders. Will continue for now. PLAN FOR INPATIENT GLYCEMIC CONTROL: * Basal insulin * Lantus 25 units SQ qAM * Bolus insulin * NovoLog per scale ACHS or Q6hrs while NPO * Goal Range: Low 110 mg/dL - High 140 mg/dL * Correction Factor: 20 mg/dL/unit * Nutritional / Prandial insulin per carb ratio of 1 unit per 7 grams CHO consumed
--- NOTE | 2024-08-09 23:46 | Podiatry Consultation ---
Date of Consultation August 09, 2024 Assessment & Plan (1) Osteomyelitis of second toe of left foot: (2) Cellulitis of second toe of left foot: (3) Abnormal ankle brachial index: Plan Patient was examined and evaluated. We discussed etiology and treatment of his left second toe infection. With the clear evidence of bone infection and his longstanding diabetic peripheral angiopathy, he would benefit from a amputation rather than attempting 2 months of IV antibiotics. Still, these options were discussed and he is amenable to the amputation versus antibiotics. We will plan on adding this onto the schedule tomorrow, 08/10/2024 as an add-on case. He will likely be able to be discharged shortly after with clinically clean margins expected. Patient understands and is in agreement with the treatment plan.Plan for second toe amputation on 08/10. Note will be pending due to power outage, not having a computer to document on. History of Present Illness Reason for Consultation: Left second toe osteomyelitis Attending Physician: Loretta Real MD History of Present Illness Seen at bedside at lunchtime. He states that he has had suspected bone infection in this left second toe for over a month and has seen his rn cardiovascular icu outpatient for this. The even debrided or removed bone fragments in the office in the last week or 2 though his wound has worsened, along with his level of pain. Further, he began to feel sick and sought treatment at the hospital for this. He denies any similar history of bone infection but has been dealing with this wound without any significant improvement. He has been feeling ill with fever, chills, and weakness. He is interested in definitive correction if possible. He denies any injury or trauma leading to this initially. Allergies Allergy/AdvReac Type Severity Reaction Status Date / Time codeine AdvReac Mild GI UPSET Verified 08/08/24 19:48 acetaminophen [From Percocet] AdvReac Itching Verified 08/08/24 19:48 morphine AdvReac Vomiting Verified 08/08/24 19:48 oxycodone [From Percocet] AdvReac Itching Verified 08/08/24 19:48 Home Medications Medication Instructions Recorded Confirmed Type rosuvastatin 10 mg tablet 10 mg PO QAM 09/10/22 08/08/24 History insulin glargine 100 unit/mL 50 unit subcut QAM 12/10/23 08/08/24 History subcutaneous solution (Lantus U-100 Insulin) dulaglutide 4.5 mg/0.5 mL 4.5 mg subcut WK 08/08/24 08/08/24 History subcutaneous pen injector (Trulicity) insulin aspart U-100 100 unit/mL See Rx Instructions .Route .COMPLEX 08/08/24 08/08/24 History (3 mL) subcutaneous pen lisinopril 20 1 tab PO QAM 08/08/24 08/08/24 History mg-hydrochlorothiazide 12.5 mg tablet Patient History Medical History 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 Surgical History History of laparoscopic appendectomy Social History Smoking Status: Never smoker Do You Dip or Chew Tobacco: No; Hx Alcohol Use: Yes Alcohol type: beer Hx Substance Use: No Preferred Language: Icelandic Communication Ability: Effective Hearing Ability: Normal Otolaryngology Teacher Required: No Beliefs That Will Affect Care: None marital status: Current Living Situation: Spouse current occupational status: retired Other Information That Helps Us Care for You: No Feels Safe at Home: Yes Safety Concerns: Feels Safe At This Time Diet: regular caffeine: Yes during the past year weight has: decreased > 10 lbs Physical Activity Frequency: Does not Exercise Assistive Devices: None Review of Systems Review of Systems: All systems reviewed & are unremarkable except as noted in HPI & below Constitutional: no fever, no chills and no fatigue Eyes: no problem reported Ear, Nose, Mouth, Throat: no problem reported Respiratory: no problem reported Cardiovascular: + edema; no problem reported Gastrointestinal: no nausea, no vomiting and no problem reported Musculoskeletal: no problem reported Integumentary: + skin ulcer, + wounds and + erythema Neurologic: + loss of sensation, + numbness and + pa resthesia; no generalized weakness Psychiatric: no problem reported Physical Exam Physical Exam: Lower extremity focused exam: DP/PT pulses palpable. CFT is brisk to the digits. Left second toe was acutely infected with distal ulceration extending to the level of the distal phalanx. There is purulent drainage and profound erythema and edema to the digit with no ascending cellulitis noted. There is pain on palpation and clinical exam. The remainder of the digits are within normal limits though there is age-related contracture of the toes. Protective sensation is otherwise diminished as well. Constitutional: WD/WN, vitals as above + ill appearing, + morbidly obese and + disheveled Eyes: PERRL, conjunctivae normal, anicteric sclerae ENMT: external ear and nose normal, oropharynx normal Neck: trachea midline, no thyromegaly normal visual inspection Respiratory: normal respiratory effort; no respiratory distress Cardiovascular: Rate/Rhythm: regular rate and regular rhythm Vessels: posterior tibial pulses present and dorsalis pedis pulses present Chest (Breasts): Chest: normal inspection of chest Gastrointestinal (Abdomen): Inspection/Auscultation: abdomen normal to inspection Percussion/Palpation: + abdomen tender and abdomen soft Musculoskeletal: no cyanosis or clubbing, extremities motor strength 5/5 Head/Neck/Chest: normocephalic and head atraumatic Extremities: extremities normal to inspection Skin: + ulcer, + wound, + skin atrophy and + n ail abnormality Neurologic: awake; no focal motor deficits Psychiatric: A+Ox3, euthymic affect Results & Data Vital Signs (Past 12 Hours) Vital Signs Temp Pulse Resp BP Pulse Ox O2 Del Method 08/09/24 20:28 36.9 C 75 16 138/74 93 Room Air 08/09/24 15:23 36.5 C 76 16 151/78 H 95 Room Air Diagnostic Findings Plain film radiographs reveal extensive bone infection to the distal phalanx with fracture and fragmentation of the phalanx noted.
[2024-08-10] MEDS ORDERED: Nursing to Pharmacy Communication SCH (01:00)
[2024-08-10] MEDS: INSULIN ASPART PER UNIT CHARGE SC ONE (01:10)
[2024-08-10 05:55] LABS: Hematocrit (blood only) 35.9 % (42.0-52.0); Hemoglobin 11.7 g/dl (14.0-18.0); Mean Corpuscular Hemoglobin 28.3 pg (25.0-34.0); Mean Corpuscular Hgb Conc 32.6 g/dL (32.0-36.0); Mean Corpuscular Volume 86.7 fL (80.0-100.0); Platelet Count 85 K/uL (130-400); RDW Coefficient of Variation 13.6 % (11.5-14.5); RDW Standard Deviation 42.7 fL (36.4-46.3); Red Blood Count 4.14 M/uL (4.70-6.10)
[2024-08-10 06:06] LABS: BUN Creatinine Ratio 28.2 (10-20); Calcium 8.3 mg/dl (8.6-10.3); Creatinine Clr Calc Pharmacy 68.3 ml/min; Potassium 4.4 mmol/L (3.5-5.1)
[2024-08-10] MEDS: INSULIN ASPART PER UNIT CHARGE SC SCH ×2 (06:15→21:26)
--- NOTE | 2024-08-10 08:51 | Pharmacy Report ---
Pharmacy PK ABX Note - Date of Service August 10, 2024 - Assessment and Plan Assessment 08/10: Reviewed vancomycin level, predicting therapeutic AUC/MONTANA, continue current regimen. Plan for left 2nd toe amputation today. Blood cultures NGx24 hours. 08/09: 64 year old M receiving vancomycin and cefepime for treatment of left second toe osteomyelitis. Blood cultures pending. Completed a course of Bactrim 1 week ago. Podiatry consulted. SCr 1.69 --> 1.4 (CKD III). Day #2 of antimicrobial therapy. Plan Vancomycin * Loading dose: 2250 mg IV x 1 * Maintenance dose: 1000 mg IV every 12 hours * Regimen is predicted to achieve target AUC/MONTANA of 400-600 mg/L.hr * Random level if continued or based on patient clinical status. Pharmacy will continue to follow and will adjust dose/frequency as necessary. Thank you. Pharmacy has transitioned to AUC monitoring for vancomycin. AUC/MONTANA is the preferred PK/PD target and is associated with decreased risk of nephrotoxicity compared to traditional trough targets.
--- NOTE | 2024-08-10 11:50 | Hospitalist Progress Note ---
Date of Service August 10, 2024 Assessment & Plan (1) Osteomyelitis of second toe of left foot: Plan: 64-year-old male with past med history significant for type 2 diabetes, diabetic polyneuropathy, dyslipidemia, diabetic retinopathy, CKD stage III, hypertension, left foot drop, bilateral hearing loss and on hearing aids, left eye cataract, thrombocytopenia, varicose veins of left lower extremity presents with ongoing infection of left second toe that has been ongoing for 3 weeks. Osteomyelitis of second toe of left foot Diabetic foot infection Previous cultures grew staph and Pseudomonas Continue cefepime and vancomycin Planned for OR today Diabetes Continue lantus 25U. Will adjust dose post op Continue sliding scale HbA1c 8.3 Hypertension On lisinopril and hydrochlorothiazide Will monitor CKD stage III Creatinine 1.42 today Dyslipidemia On rosuvastatin Thrombocytopenia Platelets 85K Will monitor DVT prophylaxis SCDs Full code I spent a total of 50 minutes coordinating, documenting and providing care for this patient excluding time spent in performance of separately billed services Admission and Anticipated Discharge Date Admission Date: August 08, 2024 Subjective Patient seen and examined Report left foot pain is well controlled No other complaints Physical Exam Constitutional: + well hydrated; no acute distress Eyes: PERRL, conjunctivae normal, anicteric sclerae ENMT: external ear and nose normal, oropharynx normal Respiratory: normal respiratory effort, lungs clear to auscultation Cardiovascular: Rate/Rhythm: regular rate and regular rhythm Gastrointestinal (Abdomen): normal bowel sounds, soft, nontender, no hepatosplenomegaly Musculoskeletal: Left 2nd toe wound Neurologic: PERRL, EOMI, accommodation nl, no face palsy, no dysarthria Chronic left facial droop Psychiatric: A+Ox3, euthymic affect Results & Data Results & Data Vital Signs (Past 12 Hours) Vital Signs Temp Pulse Resp BP Pulse Ox O2 Del Method 08/10/24 07:00 36.8 C 60 18 124/72 93 Room Air Laboratory Results Abnormal lab results 08/09/24 08/09/24 08/09/24 Range/Units 16:27 20:33 23:57 RBC (4.70-6.10) M/uL Hgb (14.0-18.0) g/dl Hct (42.0-52.0) % Plt Count (130-400) K/uL Sodium (136-145) mmol/L Chloride (98-107) mmol/L Carbon Dioxide (21-32) mmol/L BUN (6-23) mg/dl Creatinine (0.6-1.4) mg/dl BUN/Creatinine Ratio (10-20) Glucose (70-99(Fasting)) mg/dl POC Glucose 197 H 214 H 238 H (70-99) mg/dl Calcium (8.6-10.3) mg/dl 08/10/24 08/10/24 08/10/24 Range/Units 05:26 05:54 12:11 RBC 4.14 L (4.70-6.10) M/uL Hgb 11.7 L (14.0-18.0) g/dl Hct 35.9 L (42.0-52.0) % Plt Count 85 L (130-400) K/uL Sodium 135 L (136-145) mmol/L Chloride 111 H (98-107) mmol/L Carbon Dioxide 20 L (21-32) mmol/L BUN 40 H (6-23) mg/dl Creatinine 1.42 H (0.6-1.4) mg/dl BUN/Creatinine Ratio 28.2 H (10-20) Glucose 156 H (70-99(Fasting)) mg/dl POC Glucose 151 H 124 H (70-99) mg/dl Calcium 8.3 L (8.6-10.3) mg/dl
--- NOTE | 2024-08-10 14:46 | Pharmacy Report ---
Pharmacy Glycemic Short Note 2 - Date of Service August 10, 2024 - Glycemic Short BSG Results (Last 24 hours): 08/09/24 08/09/24 08/09/24 16:27 20:33 23:57 Glucose POC Glucose 197 H 214 H 238 H 08/10/24 08/10/24 08/10/24 05:26 05:54 12:11 Glucose 156 H POC Glucose 151 H 124 H OUTPATIENT ANTIDIABETIC REGIMEN: * Lantus 50 units SC qAM * Novolog SC with meals * Dulaglutide 4.5 mg SC weekly A1c = 8.3% (08/09/24) ASSESSMENT: 08/10 * Spencer received 52 units of insulin yesterday (25 were basal) * Fasting BSG this AM acceptable, basal insulin held this in anticipation of toe anticipation today. Basal scale at dinner based on BSG. If receiving steroids in OR, may need additional basal. Second shift RPh to monitor. * No changes to NovoLog at this time. He continues on vancomycin and cefepime. 08/09: * WH is a 64 yo T2DM who presented with ongoing infection of left second toe. * Patient has been started on broad spectrum antibiotics. Podiatry consulted. * Home dose of Lantus was reduced by 50% on admission for NPO status. Patient was ordered a diet for lunch + dinner, then will resume NPO this evening. * BSGs acceptable thus far on current insulin orders. Will continue for now. PLAN FOR INPATIENT GLYCEMIC CONTROL: * Basal insulin * Lantus 25-35 units SQ QDD x1 (based on BSG) * Reassess basal in AM * Bolus insulin * NovoLog per scale ACHS or Q6hrs while NPO * Goal Range: Low 110 mg/dL - High 140 mg/dL * Correction Factor: 20 mg/dL/unit * Nutritional / Prandial insulin per carb ratio of 1 unit per 7 grams CHO consumed
[2024-08-10] MEDS ORDERED: LIDOCAINE 2% 2 ML VIAL/AMP(20MG/ML) INFIL ONE (16:26)
[2024-08-10] MEDS ORDERED: fentaNYL citrate PF 100 MCG/2 ML VIAL ONE (16:26)
[2024-08-10] MEDS ORDERED: ONDANSETRON INJ 2 MG/ML 2 ML VIAL ONE (16:26)
[2024-08-10] MEDS ORDERED: MIDAZOLAM HCL 1 MG/ML 2ML VIAL ONE (16:26)
[2024-08-10] MEDS ORDERED: PROPOFOL IV EMULSION 10 MG/ML 20 ML VIAL IV ONE (16:26)
[2024-08-10] MEDS ORDERED: DEXAMETHASONE SOD INJ 4 MG/ML VIAL ONE (16:26)
[2024-08-10] MEDS ORDERED: GLYCOPYRROLATE 0.2 MG/ML VIAL ONE (16:26)
[2024-08-10] MEDS: SODIUM CHLORIDE 0.9% 1,000 ML IV SCH (16:30)
[2024-08-10] MEDS ORDERED: LANTUS PER UNIT CHARGE SC SCH (16:30)
--- NOTE | 2024-08-10 16:47 | History & Physical Bridge Note ---
Date of Service August 10, 2024 History & Physical Bridge Note I have examined the patient, reviewed the History & Physical and in the interval since the performance of the History & Physical I have noted the following changes of clinical significance: no changes noted. Consent obtained for left second toe amputation. All questions answered. Preoperative instructions, postoperative instructions discussed.
--- NOTE | 2024-08-10 17:09 | Anesthesiology Consultation ---
Date of Service August 10, 2024 Assessment & Plan Chart Review Chart Review: Acceptable Risk for Surgery Consults Requested none History Surgery Operation Date: 08/10/24 07:00 Proposed Procedures p Left Second Toe Amputation(Left) - Dio Su DPM Height/Weight Height: 6 ft 1 in Weight: 113 kg Allergies Allergy/AdvReac Type Severity Reaction Status Date / Time codeine AdvReac Mild GI UPSET Verified 08/08/24 19:48 acetaminophen [From Percocet] AdvReac Itching Verified 08/08/24 19:48 morphine AdvReac Vomiting Verified 08/08/24 19:48 oxycodone [From Percocet] AdvReac Itching Verified 08/08/24 19:48 Medications Home Medications Medication Instructions Recorded Confirmed Last Taken rosuvastatin 10 mg tablet 10 mg PO QAM 09/10/22 08/08/24 08/07/24 insulin glargine 100 unit/mL 50 unit subcut QAM 12/10/23 08/08/24 08/07/24 subcutaneous solution (Lantus U-100 Insulin) dulaglutide 4.5 mg/0.5 mL 4.5 mg subcut WK 08/08/24 08/08/24 08/07/24 subcutaneous pen injector (Trulicity) insulin aspart U-100 100 unit/mL See Rx Instructions .Route .COMPLEX 08/08/24 08/08/24 08/07/24 (3 mL) subcutaneous pen lisinopril 20 1 tab PO QAM 08/08/24 08/08/24 08/07/24 mg-hydrochlorothiazide 12.5 mg tablet Active Medications Generic Name Dose Route Start Last Admin Trade Name Freq PRN Reason Stop Dose Admin Lisinopril/HCTZ 1 tab 08/09/24 09:00 08/10/24 08:17 Lisinopril/Hctz 20/12.5mg 1 Tab Tab PO 09/08/24 08:59 1 tab QAM NAYELI Administration Hydromorphone HCl 0.5 mg 08/08/24 22:13 08/10/24 13:57 Hydromorphone Inj 0.5 Mg/0.5 Ml Syr IV 08/22/24 22:12 0.5 mg Q6H PRN Administration Severe Pain (Scale 7, 8, 9,10) Cefepime HCl 2,000 mg in 20 mls @ 5 mls/min 08/09/24 08:00 08/10/24 08:18 Maxipime 2000mg IV 08/16/24 07:59 5 mls/min Q12H NAYELI Administration Protocol Vancomycin HCl 1,000 mg in 270 mls @ 200 mls/hr 08/09/24 10:00 08/10/24 12:23 Vancomycin Hcl IV 08/16/24 09:59 Infused Q12H NAYELI Infusion Protocol Promethazine HCl 12.5 mg in 50.5 mls @ 202 mls/hr 08/09/24 08:22 08/09/24 09:40 Phenergan IV 09/08/24 08:21 Infused Q6H PRN Infusion Nausea And Vomiting Insulin Aspart 0 units 08/10/24 06:00 08/10/24 12:23 Insulin Aspart Per Unit Charge SC 09/09/24 05:59 Not Given Q6 NAYELI Ondansetron HCl 4 mg 08/08/24 22:13 08/09/24 06:13 Ondansetron Inj 2 Mg/Ml 2 Ml Vial IV 09/07/24 22:12 4 mg Q6H PRN Administration Nausea Rosuvastatin Calcium 10 mg 08/09/24 09:00 08/10/24 08:18 Rosuvastatin Calcium 10 Mg Tab PO 09/08/24 08:59 10 mg QAM NAYELI Administration NPO Date Last Intake of Fluids: 08/09/24 Time Last Intake of Fluids: 23:00 Date Last Intake of Solids: 08/09/24 Time Last Intake of Solids: 23:00 Past Medical History Medical History 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 Past Surgical History Surgical History History of laparoscopic appendectomy Social History Smoking Status: Never smoker Do You Dip or Chew Tobacco: No Hx Alcohol Use: Yes Alcohol type: beer alcohol intake frequency: a few times a month Hx Substance Use: No substance use type: does not use Physical Exam Vital Signs Last Vital Signs Temp 36.6 C 08/10/24 16:00 Pulse 67 08/10/24 16:00 Resp 19 08/10/24 16:00 BP 181/89 H 08/10/24 16:00 Pulse Ox 98 03/17/25 16:00 O2 Del Method Room Air 08/10/24 16:00 Testing Laboratory Results 08/10/24 05:26 08/10/24 05:26 Hemoglobin A1c 8.3 % (4.5-5.6) H 08/09/24 05:47 08/08/24 19:31 Aerobic Blood Culture - Preliminary Blood No growth in Aerobic bottle after 24 hours. Anaerobic Blood Culture - Preliminary No growth in Anaerobic bottle after 24 hours. 08/08/24 19:31 Aerobic Blood Culture - Preliminary Blood No growth in Aerobic bottle after 24 hours. Anaerobic Blood Culture - Preliminary No growth in Anaerobic bottle after 24 hours. 08/10/24 08/10/24 08/10/24 16:09 12:11 05:54 POC Glucose 124 H 124 H 151 H
[2024-08-10] MEDS: BUPIVACAINE 0.5 % 5 MG/1 ML MPF 30ML VIAL ONE (17:30)
--- NOTE | 2024-08-10 17:33 | Post Operative Brief Note ---
Immediate Post Op Note Date of Surgery August 10, 2024 Pre & Post Diagnosis Preoperative diagnosis: left second toe osteomyelitis Postoperative diagnosis: same I identified the patient and participated in the time-out.: Yes Procedure Left second toe amputation Surgeon Dio Su DPM Club Lounge Attendant None Estimated Blood Loss 5 Findings Consistent with Post-Op Diagnosis Specimens Left second toe gross pathology Left second toe proximal margin pathology Left second toe distal phalanx bone culture Anesthesia Type MAC Complications none Disposition Accompanied Patient To Recovery: Yes Disposition: Recovery Room
[2024-08-10] MEDS ORDERED: fentaNYL citrate PF 100 MCG/2 ML VIAL IV PRN (17:48)
[2024-08-10] MEDS ORDERED: DROPERIDOL 5 MG/2 ML VIAL IV PRN (17:48)
[2024-08-10] MEDS ORDERED: ATROPINE SULFATE 0.1 MG/ML 10ML SYR IV PRN (17:48)
[2024-08-10] MEDS ORDERED: ePHEDrine sulfate 50 MG/ML AMP IV PRN (17:48)
[2024-08-10] MEDS ORDERED: ONDANSETRON INJ 2 MG/ML 2 ML VIAL IV PRN (17:48)
[2024-08-10] MEDS: PROMETHAZINE HCL 6.25 MG in SODIUM CHLORIDE 0.9% 50 ML IV PRN (18:03)
--- NOTE | 2024-08-10 18:20 | Anesthesiology Progress Note ---
Date of Service August 10, 2024 Anesthesia Post Procedure Vital Signs Vital Signs: Temp Pulse Pulse Resp BP BP Pulse Ox 08/10/24 18:15 36 C L 73 21 155/87 H 92 08/10/24 18:05 81 13 168/83 H 96 08/10/24 17:55 69 15 162/83 H 95 08/10/24 17:45 73 21 134/71 95 08/10/24 17:36 36 C L 72 15 133/78 97 08/10/24 16:00 36.6 C 67 19 181/89 H 98 08/10/24 07:00 36.8 C 60 18 124/72 93 08/09/24 20:28 36.9 C 75 16 138/74 93 O2 Del Method O2 Flow Rate 08/10/24 18:15 Room Air 08/10/24 18:05 Room Air 08/10/24 17:55 Room Air 08/10/24 17:45 Oxymask 5 08/10/24 17:36 Oxymask 5 08/10/24 16:00 Room Air 08/10/24 07:00 Room Air 08/09/24 20:28 Room Air Pain Intensity Left Toe: Pain Intensity: 4 Transfer of Care Handoff Completed per policy Notes Mental Status: alert / awake / arousable and participated in evaluation Patient Amnestic to Procedure: Yes Nausea / Vomiting: adequately controlled Pain: adequately controlled Airway Patency, RR, SpO2: stable & adequate BP & HR: stable & adequate Hydration State: stable & adequate Anesthetic Complications: no major complications apparent
[2024-08-10] MEDS: PROMETHAZINE HCL INJ 25 MG/ML 1 ML VIAL ONE (18:39)
[2024-08-10] MEDS: SODIUM CHLORIDE 0.9% 50 ML BAG ONE (18:40)
[2024-08-10] MEDS: LANTUS PER UNIT CHARGE SC SCH (21:25)
[2024-08-11 07:54] LABS: Hematocrit (blood only) 36.6 % (42.0-52.0); Mean Corpuscular Hemoglobin 27.6 pg (25.0-34.0); Mean Corpuscular Hgb Conc 32.8 g/dL (32.0-36.0); Mean Corpuscular Volume 84.1 fL (80.0-100.0); Mean Platelet Volume 11.9 fL (9.4-12.4); Platelet Count 92 K/uL (130-400); RDW Coefficient of Variation 13.2 % (11.5-14.5); RDW Standard Deviation 40.9 fL (36.4-46.3); Red Blood Count 4.35 M/uL (4.70-6.10); White Blood Count 5.23 K/ul (4.8-10.8)
[2024-08-11 08:06] LABS: BUN Creatinine Ratio 29.3 (10-20); Calcium 8.5 mg/dl (8.6-10.3); Creatinine Clr Calc Pharmacy 83.6 ml/min; Magnesium 1.4 mg/dl (1.7-2.4); Phosphorus 3.1 mg/dl (2.5-4.9)
[2024-08-11] MEDS: POLYETHYLENE (MIRALAX) 17 GM PACK PO PRN (09:47)
[2024-08-11] MEDS ORDERED: hydrOXYzine HCl 10 MG TAB PO PRN (12:30)
[2024-08-11] MEDS: INSULIN HUMAN REGULAR PER UNIT 5 UNITS in SYRINGE 4.95 ML IV ONE (12:41)
--- NOTE | 2024-08-11 13:18 | Hospitalist Progress Note ---
Date of Service August 11, 2024 Assessment & Plan (1) Osteomyelitis of second toe of left foot: Plan: 64-year-old male with past med history significant for type 2 diabetes, diabetic polyneuropathy, dyslipidemia, diabetic retinopathy, CKD stage III, hypertension, left foot drop, bilateral hearing loss and on hearing aids, left eye cataract, thrombocytopenia, varicose veins of left lower extremity presents with ongoing infection of left second toe that has been ongoing for 3 weeks. Osteomyelitis of second toe of left foot Diabetic foot infection Previous cultures grew staph and Pseudomonas S/p Left 2nd toe amputation on 08/10/24 Follow up OR culture Continue cefepime and vancomycin for now until final cultures Diabetes HbA1c 8.3 BG poorly controlled. Discussed with glycemic pharm. Adjustments made to insulin regimen Hypertension On lisinopril and hydrochlorothiazide Will monitor Hypomagnesemia Mg is 1.4 today Replete and monitor CKD stage III Creatinine 1.16 today Dyslipidemia On rosuvastatin Thrombocytopenia Platelets 92K Will monitor DVT prophylaxis SCDs Full code I spent a total of 50 minutes coordinating, documenting and providing care for this patient excluding time spent in performance of separately billed services Admission and Anticipated Discharge Date Admission Date: August 08, 2024 Subjective Patient seen and examined Reports surgical site pain is well controlled Reports he did not get much sleep last night due to anxiety at night No other new complaints Physical Exam Constitutional: + well hydrated; no acute distress Eyes: PERRL, conjunctivae normal, anicteric sclerae ENMT: external ear and nose normal, oropharynx normal Respiratory: normal respiratory effort, lungs clear to auscultation Cardiovascular: Rate/Rhythm: regular rate and regular rhythm Gastrointestinal (Abdomen): normal bowel sounds, soft, nontender, no hepato splenomegaly Musculoskeletal: Left foot bandage Neurologic: +Left facial palsy (chronic) Psychiatric: A+Ox3, euthymic affect Results & Data Results & Data Vital Signs (Past 12 Hours) Vital Signs Temp Pulse Resp BP BP Pulse Ox O2 Del Method 08/11/24 12:05 36.5 C 63 18 173/81 H 96 Room Air 08/11/24 08:25 36.6 C 70 18 167/78 H 96 Room Air 08/11/24 05:15 36.5 C 66 18 149/80 H 92 Room Air 08/11/24 01:30 36.3 C L 65 18 162/78 H 93 Room Air Laboratory Results Abnormal lab results 08/10/24 08/10/24 08/10/24 Range/Units 16:09 17:38 18:38 RBC (4.70-6.10) M/uL Hgb (14.0-18.0) g/dl Hct (42.0-52.0) % Plt Count (130-400) K/uL Sodium (136-145) mmol/L Chloride (98-107) mmol/L Carbon Dioxide (21-32) mmol/L BUN (6-23) mg/dl BUN/Creatinine Ratio (10-20) Glucose (70-99(Fasting)) mg/dl POC Glucose 124 H 117 H 136 H (70-99) mg/dl Calcium (8.6-10.3) mg/dl Magnesium (1.7-2.4) mg/dl 08/11/24 08/11/24 08/11/24 Range/Units 07:23 07:56 07:59 RBC 4.35 L (4.70-6.10) M/uL Hgb 12.0 L (14.0-18.0) g/dl Hct 36.6 L (42.0-52.0) % Plt Count 92 L (130-400) K/uL Sodium 135 L (136-145) mmol/L Chloride 109 H (98-107) mmol/L Carbon Dioxide 19 L (21-32) mmol/L BUN 34 H (6-23) mg/dl BUN/Creatinine Ratio 29.3 H (10-20) Glucose 346 H* (70-99(Fasting)) mg/dl POC Glucose 300 H 314 H* (70-99) mg/dl Calcium 8.5 L (8.6-10.3) mg/dl Magnesium 1.4 L (1.7-2.4) mg/dl 08/11/24 08/11/24 08/11/24 Range/Units 10:43 11:28 12:13 RBC (4.70-6.10) M/uL Hgb (14.0-18.0) g/dl Hct (42.0-52.0) % Plt Count (130-400) K/uL Sodium (136-145) mmol/L Chloride (98-107) mmol/L Carbon Dioxide (21-32) mmol/L BUN (6-23) mg/dl BUN/Creatinine Ratio (10-20) Glucose (70-99(Fasting)) mg/dl POC Glucose 383 H* 353 H* 344 H* (70-99) mg/dl Calcium (8.6-10.3) mg/dl Magnesium (1.7-2.4) mg/dl 08/11/24 Range/Units 12:14 RBC (4.70-6.10) M/uL Hgb (14.0-18.0) g/dl Hct (42.0-52.0) % Plt Count (130-400) K/uL Sodium (136-145) mmol/L Chloride (98-107) mmol/L Carbon Dioxide (21-32) mmol/L BUN (6-23) mg/dl BUN/Creatinine Ratio (-) Glucose (70-99(Fasting)) mg/dl POC Glucose 378 H* (70-99) mg/dl Calcium (8.6-10.3) mg/dl Magnesium (1.7-2.4) mg/dl
--- NOTE | 2024-08-11 13:21 | Pharmacy Report ---
Pharmacy PK ABX Note - Date of Service August 11, 2024 - Assessment and Plan Assessment 08/11: Post op day #1 following toe amputation. SCr improving, current dose estimating low end of goal, will adjust slightly to target mid range. Toe culture currently growing Staph aureus (sensitivities pending). 08/10: Reviewed vancomycin level, predicting therapeutic AUC/MONTANA, continue current regimen. Plan for left 2nd toe amputation today. Blood cultures NGx24 hours. 08/09: 64 year old M receiving vancomycin and cefepime for treatment of left second toe osteomyelitis. Blood cultures pending. Completed a course of Bactrim 1 week ago. Podiatry consulted. SCr 1.69 --> 1.4 (CKD III). Day #3 of antimicrobial therapy. Plan Vancomycin * Loading dose: 2250 mg IV x 1 * Maintenance dose: 1000 mg IV every 12 hours; Adjust to 1250 mg IV every 12 hours * Regimen is predicted to achieve target AUC/MONTANA of 400-600 mg/L.hr * Random level 08/13 if SCr remains stable Pharmacy will continue to follow and will adjust dose/frequency as necessary. Thank you. Pharmacy has transitioned to AUC monitoring for vancomycin. AUC/MONTANA is the preferred PK/PD target and is associated with decreased risk of nephrotoxicity compared to traditional trough targets.
--- NOTE | 2024-08-11 13:24 | Pharmacy Report ---
Pharmacy Glycemic Short Note 2 - Date of Service August 11, 2024 - Glycemic Short BSG Results (Last 24 hours): 08/10/24 08/10/24 08/10/24 16:09 17:38 18:38 Glucose POC Glucose 124 H 117 H 136 H 08/11/24 08/11/24 08/11/24 07:23 07:56 07:59 Glucose 346 H* POC Glucose 300 H 314 H* 08/11/24 08/11/24 08/11/24 10:43 11:28 12:13 Glucose POC Glucose 383 H* 353 H* 344 H* 08/11/24 12:14 Glucose POC Glucose 378 H* OUTPATIENT ANTIDIABETIC REGIMEN: * Lantus 50 units SC qAM * Novolog SC with meals * Dulaglutide 4.5 mg SC weekly A1c = 8.3% (08/09/24) ASSESSMENT: 08/11 * BSGs within range yesterday, am lantus held for OR, given 50 units last night * BSGs elevated today secondary to IV dexamethasone given in the OR. Novolog parameters tightened with breakfast, received 5 units IV insulin with lunch (loosened correction factor as previous insulin had been given ~2 hours prior/still active) and tightened again with dinner- monitor for further adjustments * Will scale lantus this PM 08/10 * Spencer received 52 units of insulin yesterday (25 were basal) * Fasting BSG this AM acceptable, basal insulin held this in anticipation of toe anticipation today. Basal scale at dinner based on BSG. If receiving steroids in OR, may need additional basal. Second shift [facility] to monitor. * No changes to NovoLog at this time. He continues on vancomycin and cefepime. 08/09: * KAIA is a 64 yo T2DM who presented with ongoing infection of left second toe. * Patient has been started on broad spectrum antibiotics. Podiatry consulted. * Home dose of Lantus was reduced by 50% on admission for NPO status. Patient was ordered a diet for lunch + dinner, then will resume NPO this evening. * BSGs acceptable thus far on current insulin orders. Will continue for now. PLAN FOR INPATIENT GLYCEMIC CONTROL: * Basal insulin * Lantus 40-50 units SQ HS x1 (based on BSG) * Reassess basal in AM * Bolus insulin * NovoLog per scale ACHS or Q6hrs while NPO * Goal Range: Low 110 mg/dL - High 140 mg/dL * Correction Factor: 15 mg/dL/unit * Nutritional / Prandial insulin per carb ratio of 1 unit per 4 grams CHO consumed
[2024-08-11] MEDS: MAGNESIUM SULFATE / D5W 1 GM/100 ML BAG IV SCH (16:50)
--- NOTE | 2024-08-11 17:54 | Podiatry Progress Note ---
Date of Service August 11, 2024 Assessment & Plan (1) Osteomyelitis of second toe of left foot: (2) Cellulitis of second toe of left foot: (3) Abnormal ankle brachial index: Plan Patient was examined and evaluated. - Foot cleaned, redressed with adaptic, 4x4, kerlix, luisito wrap. - Discussed this sterile dressing is best postoperatively, but if his anxiety does not allow for it due to claustrophobia, we can try optifoam border adhesive dressing. - Would need changed more regularly until bleeding further diminishes/ceases in the next week or two. - Suture removal at two weeks. - Pending cultures/pathology will likely confirm no remaining OM. - Would rec. 2 weeks oral antibiotics, otherwise can d/c home with close outpatient followup Admission and Anticipated Discharge Date Admission Date: August 08, 2024 Subjective Seen at bedside POD #1. Had some bleeding noted to dressing by nursing, who redressed it earlier today. States he has "claustrophobia of his foot" in dressings and was not able to sleep well. Denies pain to the foot/surgery site otherwise. Is feeling better than on admission. Review of Systems Constitutional: no fever, no chills and no fatigue Eyes: no problem reported Ear, Nose, Mouth, Throat: no problem reported Respiratory: no problem reported Cardiovascular: + edema; no problem reported Gastrointestinal: no nausea, no vomiting and no problem reported Musculoskeletal: no problem reported Integumentary: + skin ulcer, + wounds and + erythema Neurologic: + loss of sensation, + numbness and + pa resthesia; no generalized weakness Psychiatric: no problem reported Physical Exam Physical Exam: Lower extremity focused exam: DP/PT pulses palpable. CFT is brisk to the digits. Left second toe amputation site is intact, no dehiscence noted. No purulence appreciated. Minimal oozing blood noted, no arterial/pulsatile flow. Scant breakthrough to dressing applied by nursing. The remainder of the digits are within normal limits though there is age-related contracture of the toes. Protective sensation is otherwise diminished as well. Constitutional: WD/WN, vitals as above + ill appearing, + morbidly obese and + disheveled Eyes: PERRL, conjunctivae normal, anicteric sclerae ENMT: external ear and nose normal, oropharynx normal Neck: trachea midline, no thyromegaly normal visual inspection Respiratory: normal respiratory effort; no respiratory distress Cardiovascular: Rate/Rhythm: regular rate and regular rhythm Vessels: posterior tibial pulses present and dorsalis pedis pulses present Chest (Breasts): Chest: normal inspection of chest Gastrointestinal (Abdomen): Inspection/Auscultation: abdomen normal to inspection Percussion/Palpation: + abdomen tender and abdomen soft Musculoskeletal: no cyanosis or clubbing, extremities motor strength 5/5 Head/Neck/Chest: normocephalic and head atraumatic Extremities: extremities normal to inspection Skin: + ulcer, + wound, + skin atrophy and + n ail abnormality Neurologic: awake; no focal motor deficits Psychiatric: A+Ox3, euthymic affect Results & Data Results & Data Vital Signs (Past 12 Hours) Vital Signs Temp Pulse Resp BP BP Pulse Ox O2 Del Method 08/11/24 15:34 36.4 C L 68 18 159/84 H 97 Room Air 08/11/24 12:05 36.5 C 63 18 173/81 H 96 Room Air 08/11/24 08:25 36.6 C 70 18 167/78 H 96 Room Air
[2024-08-11] MEDS: VANCOMYCIN HCL 1,250 MG in SODIUM CHLORIDE 0.9% 250 ML IV SCH (21:34)
[2024-08-11] MEDS: LANTUS PER UNIT CHARGE SQ ONE (21:34)
--- NOTE | 2024-08-11 21:36 | Operative Report ---
Post Operative Report Pre & Post Diagnosis Preoperative diagnosis: Left second toe osteomyelitis Postoperative diagnosis: Same I identified the patient and participated in the time-out.: Yes Procedure Left second toe amputation Surgeon Dio Su, MADI Whiskey Proof Reader None Estimated Blood Loss 5 Findings Consistent with Post-Op Diagnosis Clinically clear margins obtained, with no persistant/proximal osteomyelitis suspected. Distribution A Class Lineman specimens obtained to hopefully establish this definitively. Specimens Left second toe sent for gross pathology; left second toe proximal phalanx pathology; left second distal phalanx bone culture Anesthesia Type MAC Complications none Disposition Accompanied Patient To Recovery: Yes Disposition: Recovery Room Indications This patient is a recent hospital consult of ours who presented to the ED with known osteomyelitis of the left second toe. He sought inpatient treatment after his more chronic bone infection began to hurt significantly and drain, with increasing systemic infection symptoms developing as well. Now, we discussed IV antibiotics and wound care as an alternative to treatment, but with the extensive destruction of the phalanx noted on plain film XR as well as the systemic symptoms, amputation was deemed more likely to be definitive. Preoperative instructions, postoperative instructions, relative risks, and outcomes were all discussed. Consent was obtained for this left second toe amputation. All questions answered. Description of Procedure Patient was brought to the operating room and left on his hospital bed for the duration of the surgery. The left lower extremity was scrubbed, prepped, and draped in the usual aseptic manner. No tourniquet was utilized during the duration of the case given the patient's vascular status. Attention was directed to the distal aspect of the left second toe where an ulceration was noted, extending to the distal phalanx. The toe was disarticulated at the level of the PIPJ utilizing sharp and blunt dissection techniques with care taken to cauterize and ligate any superficial bleeding vessels. The distal toe was sent to the back table in one specimen and further transected to obtain artists' booking representative samples for culture and sensitivity of the distal phalanx. With the extension of soft tissue infection past the PIPJ but the bone appearing viable, a proximal phalanx resection was performed at the surgical neck with a double action bone cutter. This was sent to pathology as a proximal margin. The surgical site was then flushed with copious amounts of sterile saline. The surgical site was closed primarily with 2-0 nylon in a simple interrupted fashion, given the clean surgical margins able to be obtained. The surgical site was dressed with Xeroform gauze, 4 x 4 gauze, Kerlix, and an Elio wrap. The patient tolerated the procedure well and was transported to the recovery room with vitals stable and vascular status intact to the feet. Following postoperative monitoring, the patient will be given instructions discussed with him preoperatively and sent back to the floor for further evaluation and monitoring until he is medically stable. I attest to the content of the Intraoperative Record and any orders documented therein. Any exceptions are noted below.
[2024-08-11] MEDS: POLYETHYLENE (MIRALAX) 17 GM PACK PO STA (22:20)
[2024-08-12 08:08] VITALS: RESP 18; TEMP 97.7
[2024-08-12 08:47] LABS: BUN Creatinine Ratio 32.5 (10-20); Calcium 8.9 mg/dl (8.6-10.3); Creatinine Clr Calc Pharmacy 80.9 ml/min; Magnesium 1.6 mg/dl (1.7-2.4); Phosphorus 2.8 mg/dl (2.5-4.9); Potassium 4.6 mmol/L (3.5-5.1)
[2024-08-12 08:48] LABS: Hematocrit (blood only) 34.1 % (42.0-52.0); Hemoglobin 11.3 g/dl (14.0-18.0); Mean Corpuscular Hemoglobin 27.7 pg (25.0-34.0); Mean Corpuscular Hgb Conc 33.1 g/dL (32.0-36.0); Mean Corpuscular Volume 83.6 fL (80.0-100.0); Mean Platelet Volume 11.9 fL (9.4-12.4); Platelet Count 98 K/uL (130-400); RDW Coefficient of Variation 13.3 % (11.5-14.5); RDW Standard Deviation 40.7 fL (36.4-46.3); Red Blood Count 4.08 M/uL (4.70-6.10); White Blood Count 7.12 K/ul (4.8-10.8)
--- NOTE | 2024-08-12 10:40 | Hospitalist Progress Note ---
Date of Service August 12, 2024 Assessment & Plan (1) Osteomyelitis of second toe of left foot: Plan: Per previous hospitalist notes with addendum: 64-year-old male with past med history significant for type 2 diabetes, diabetic polyneuropathy, dyslipidemia, diabetic retinopathy, CKD stage III, hypertension, left foot drop, bilateral hearing loss and on hearing aids, left eye cataract, thrombocytopenia, varicose veins of left lower extremity presents with ongoing infection of left second toe that has been ongoing for 3 weeks. Osteomyelitis of second toe of left foot Diabetic foot infection Previous cultures grew staph and Pseudomonas S/p Left 2nd toe amputation on 08/10/24 Follow up OR culture Continue cefepime and vancomycin for now until final cultures 08/12 Blood cultures: Negative Wound culture: MSSA Awaiting ID service recommendations regarding antibiotic regimen Diabetes HbA1c 8.3 BG poorly controlled. Discussed with glycemic pharm. Adjustments made to insulin regimen Hypertension On lisinopril and hydrochlorothiazide Will monitor Hypomagnesemia Mg is 1.6 Replete and monitor CKD stage III Creatinine 1.2 Dyslipidemia On rosuvastatin Thrombocytopenia Platelets 98k Will monitor DVT prophylaxis SCDs Full code Admission and Anticipated Discharge Date Admission Date: August 08, 2024 Subjective Follow-up for left second toe osteomyelitis, etc. Seen resting in bedside chair, comfortable, not in distress States he feels fine overall Very minimal discomfort over surgical site No dizziness, headache, chest pain, shortness of breath abdominal pain, nausea or vomiting Ambulating in the hallways with no problems No other new symptoms Review of Systems Review of Systems: all noted and negative except for above Physical Exam Physical Exam: General- oriented x 3, not in distress, speaks in sentences with no effort or accessory muscle use Eyes- anicteric Neck- no JVD Lungs- clear breath sounds bilaterally, no rales/wheezes Heart- normal rate, regular rhythm; no murmurs Abdomen- normal bowel sounds, nondistended, soft, nontender Extremities- no pretibial edema, no calf tenderness Left foot-surgical dressing in place, no bleeding or discharge Neuro- alert, oriented x 3; no gross focal neurologic deficits Skin- warm & dry Results & Data Results & Data Vital Signs (Past 12 Hours) Vital Signs Temp Pulse Resp BP Pulse Ox O2 Del Method 08/12/24 07:58 36.5 C 58 L 18 175/85 H 95 Room Air all noted and reviewed including below
[2024-08-12] MEDS: MAGNESIUM OXIDE 400 MG TAB PO SCH (11:07)
--- NOTE | 2024-08-12 12:45 | Podiatry Progress Note ---
Date of Service August 12, 2024 Assessment & Plan (1) Osteomyelitis of second toe of left foot: (2) Cellulitis of second toe of left foot: (3) Abnormal ankle brachial index: Plan Patient was examined and evaluated. - Foot cleaned, redressed with adaptic, 4x4, kerlix, luisito wrap. - Discussed this sterile dressing is best postoperatively, but if his anxiety does not allow for it due to claustrophobia, we can try optifoam border adhesive dressing. - Would need changed more regularly until bleeding further diminishes/ceases in the next week or two. - Suture removal at two weeks. - Pending cultures/pathology will likely confirm no remaining OM. - Would rec. 2 weeks oral antibiotics, otherwise can d/c home with close outpatient followup Admission and Anticipated Discharge Date Admission Date: August 08, 2024 Subjective Patient seen at bedside POD#2 s/p left second toe amputation. Has talked to ID docs via telehealth since yesterday. No new concerns. Has ambulated with PT in surgical shoe. Review of Systems Constitutional: no fever, no chills and no fatigue Eyes: no problem reported Ear, Nose, Mouth, Throat: no problem reported Respiratory: no problem reported Cardiovascular: + edema; no problem reported Gastrointestinal: no nausea, no vomiting and no problem reported Musculoskeletal: no problem reported Integumentary: + skin ulcer, + wounds and + erythema Neurologic: + loss of sensation, + numbness and + pa resthesia; no generalized weakness Psychiatric: no problem reported Physical Exam Physical Exam: Lower extremity focused exam: DP/PT pulses palpable. CFT is brisk to the digits. Left second toe amputation site is intact, no dehiscence noted. No purulence appreciated. Minimal oozing blood noted, no arterial/pulsatile flow. Scant breakthrough to dressing applied by nursing. The remainder of the digits are within normal limits though there is age-related contracture of the toes. P rotective sensation is otherwise diminished as well. Constitutional: WD/WN, vitals as above + ill appearing, + morbidly obese and + disheveled Eyes: PERRL, conjunctivae normal, anicteric sclerae ENMT: external ear and nose normal, oropharynx normal Neck: trachea midline, no thyromegaly normal visual inspection Respiratory: normal respiratory effort; no respiratory distress Cardiovascular: Rate/Rhythm: regular rate and regular rhythm Vessels: posterior tibial pulses present and dorsalis pedis pulses present Chest (Breasts): Chest: normal inspection of chest Gastrointestinal (Abdomen): Inspection/Auscultation: abdomen normal to inspect ion Percussion/Palpation: + abdomen tender and abdomen soft Musculoskeletal: no cyanosis or clubbing, extremities motor strength 5/5 Head/Neck/Chest: normocephalic and head atraumatic Extremities: extremities normal to inspection Skin: + ulcer, + wound, + skin atrophy and + n ail abnormality Neurologic: awake; no focal motor deficits Psychiatric: A+Ox3, euthymic affect Results & Data Results & Data Vital Signs (Past 12 Hours) Vital Signs Temp Pulse Resp BP Pulse Ox O2 Del Method 08/12/24 07:58 36.5 C 58 L 18 175/85 H 95 Room Air
--- NOTE | 2024-08-12 13:13 | Infectious Disease Consult ---
Date of Service August 12, 2024 Attending addendum This is a 64 y/o male w/ a hx of DM2, who just had amputation (08/10/24) at the L 2nd toe PIP level for OM of 2nd distal phalanx and cellulitis. The OR culture showed MSSA (S to tetracycline) and Stenotrophomonas. Given presume residual soft tissue infection but no residual OM, it is reasonable to provide total 14 days (from 08/10) of oral abx therapy for soft tissue infection alone: I agree w/ minocycline monotherapy. I saw and evaluated the patient today. I have reviewed the trainee note and agree. Telehealth Information I performed this visit using a real-time telehealth connection between my location and the patients location ([facility]). After connecting through interactive tele-video, patient was identified by name and date of and/or wristband check.Patient (or authorized healthcare pharmaceutical service representative) was informed that this was a telemedicine visit and it was being conducted confidentially over secure lines. My office door was closed and no one else was present in the room with me.Patient (or authorized healthcare pharmaceutical service representative) provided consent to proceed with the visit, expressed an understanding of privacy and security of the telemedicine visit, and gave permission to have a hospital pharmaceutical service representative in the room in order to assist with the visit and to conduct portions of the visit, as needed. I informed the patient (or authorized healthcare pharmaceutical service representative) that I reviewed their record and presented the opportunity for them to ask any questions regarding the visit today. The patient agreed to participate. Assessment & Plan (1) Osteomyelitis of second toe of left foot: (2) Cellulitis of second toe of left foot: Plan patient's osteomyelitis likely surgically cured based on the amount of amputated material, initially did have significant symptoms of redness, fevers, chills and would suspect there was a significant soft tissue component, corroborated with the positive cultures. Although the likely certified driver examiner was MSSA, there was stenotrophomonas growth as well. Stenotrophomonas is a curious bacteria that is related to hospital-acquired infections that inherently has some significant antibiotic resistances. Luckily, we do have antibiotic choice that can treat both bacteriums efficiently in the soft tissues orally. Recommend treatment with minocycline for a total of 14 days from the time of amputation 08/10/24. - Discontinue cefepime/ vancomycin - minocycline 200mg once followed by 100mg PO Q12 hours EOT 08/23/24 Appreciate consultation, please do not hesitate to reach out for any further questions or concerns. Bright Jaime MD PGY5 Infectious Disease History of Present Illness History of Present Illness 64-year-old male with type 2 diabetes, CKD 3 with significant neuropathy including retinopathy and left footdrop presents with concerns of infection in his left 2nd toe. Duration 3 weeks, recently completed Bactrim from Podiatry with improvement however after discontinuation pain returned associated with chills, nausea which prompted ER. X-ray at this time with partial destruction of distal phalanx of 2nd digit consistent with osteomyelitis. Underwent PIP disarticulation with clinically clear margins, cultures obtained at proximal soft tissue margin as well. growth with MSSA as well as Stenotrophomonas. Patient did note significant increase in pain as well as increase in redness from his left 2nd toe. Allergies Allergy/AdvReac Type Severity Reaction Status Date / Time codeine AdvReac Mild GI UPSET Verified 08/08/24 19:48 acetaminophen [From Percocet] AdvReac Itching Verified 08/08/24 19:48 morphine AdvReac Vomiting Verified 08/08/24 19:48 oxycodone [From Percocet] AdvReac Itching Verified 08/08/24 19:48 Home Medications Medication Instructions Recorded Confirmed Type rosuvastatin 10 mg tablet 10 mg PO QAM 09/10/22 08/08/24 History insulin glargine 100 unit/mL 50 unit subcut QAM 12/10/23 08/08/24 History subcutaneous solution (Lantus U-100 Insulin) dulaglutide 4.5 mg/0.5 mL 4.5 mg subcut WK 08/08/24 08/08/24 History subcutaneous pen injector (Trulicity) insulin aspart U-100 100 unit/mL See Rx Instructions .Route .COMPLEX 08/08/24 08/08/24 History (3 mL) subcutaneous pen lisinopril 20 1 tab PO QAM 08/08/24 08/08/24 History mg-hydrochlorothiazide 12.5 mg tablet Patient History Medical History 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 Surgical History History of laparoscopic appendectomy Social History Smoking Status: Never smoker Do You Dip or Chew Tobacco: No; Hx Alcohol Use: Yes Alcohol type: beer Hx Substance Use: No Preferred Language: Indian Communication Ability: Effective Hearing Ability: Normal Circus Agent Required: No Beliefs That Will Affect Care: None marital status: Current Living Situation: Spouse current occupational status: retired Other Information That Helps Us Care for You: No Feels Safe at Home: Yes Safety Concerns: Feels Safe At This Time Diet: regular caffeine: Yes during the past year weight has: decreased > 10 lbs Physical Activity Frequency: Does not Exercise Assistive Devices: None Review of Systems HEENT: Denies changes in vision and hearing. RESPIRATORY: Denies SOB and cough. CV: Denies palpitations and CP. GI: Denies abdominal pain, nausea, vomiting and diarrhea. : Denies dysuria and urinary frequency. MSK: Denies myalgia and joint pain. SKIN: Denies rash and pruritus. NEUROLOGICAL: Denies headache and syncope PSYCHIATRIC: Denies recent changes in mood. Denies anxiety and depression. Physical Exam GENERAL: Appears as stated age. No acute distress. EXTREMITIES: No edema. Surgical bandage in place, not taken down. NEUROLOGIC: No focal neurological deficits. Cranial nerves grossly intact. Results & Data Vital Signs (Past 12 Hours) Vital Signs Temp Pulse Resp BP Pulse Ox O2 Del Method 08/12/24 07:58 36.5 C 58 L 18 175/85 H 95 Room Air Laboratory Results Abnormal Lab Results 08/11/24 08/11/24 08/12/24 16:58 20:03 08:00 WBC RBC Hgb Hct MCV MCH MCHC RDW Std Deviation RDW Coeff of Miguel Plt Count MPV Sodium Potassium Chloride Carbon Dioxide Anion Gap BUN Creatinine Est Cr Clr Drug Dosing eGFR BUN/Creatinine Ratio Glucose POC Glucose 275 H 264 H 127 H Calcium Phosphorus Magnesium 08/12/24 08/12/24 08:01 11:55 WBC 7.12 RBC 4.08 L Hgb 11.3 L Hct 34.1 L MCV 83.6 MCH 27.7 MCHC 33.1 RDW Std Deviation 40.7 RDW Coeff of Miguel 13.3 Plt Count 98 L MPV 11.9 Sodium 138 Potassium 4.6 Chloride 113 H Carbon Dioxide 20 L Anion Gap 5 BUN 39 H Creatinine 1.20 Est Cr Clr Drug Dosing 80.9 eGFR 67.11 BUN/Creatinine Ratio 32.5 H Glucose 127 H POC Glucose 171 H Calcium 8.9 Phosphorus 2.8 Magnesium 1.6 L Diagnostic Findings Foot X-Ray 08/08/24 18:52 Exam(s): XR LEFT FOOT, 3+ views EXAM: XR Left Foot Complete, 3 or More Views CLINICAL HISTORY: L 2nd toe infection. TECHNIQUE: Frontal, lateral and oblique views of the left foot. COMPARISON: No relevant prior studies available. FINDINGS: Soft tissue swelling surrounding distal aspect of the second digit. Demineralized distal phalanx greatest at the distal tuft and proximal metaphysis, consistent with osteomyelitis. Deformity of the mid diaphysis of the fifth metatarsal consistent with a chronic fracture. No acute fracture. Plantar calcaneal bone spur. Vascular calcifications. IMPRESSION: Soft tissue swelling surrounding distal aspect second digit consistent with cellulitis. Underlying partial destruction of the distal phalanx consistent with osteomyelitis. Old fracture mid diaphysis of the fifth metatarsal. Electronically signed by: Rocael Osorio M.D. 08/09/24 00:23 AM
--- NOTE | 2024-08-12 14:47 | Pharmacy Report ---
Pharmacy Glycemic Short Note 2 - Date of Service August 12, 2024 - Glycemic Short BSG Results (Last 24 hours): 08/11/24 08/11/24 08/12/24 16:58 20:03 08:00 Glucose POC Glucose 275 H 264 H 127 H 08/12/24 08/12/24 08:01 11:55 Glucose 127 H POC Glucose 171 H OUTPATIENT ANTIDIABETIC REGIMEN: * Lantus 50 units SC qAM * Novolog SC with meals * Dulaglutide 4.5 mg SC weekly A1c = 8.3% (08/09/24) ASSESSMENT: 08/12 * BSGs persistently high yesterday, have improved this morning * Fasting 127 mg/dL with 50 units of lantus last PM, as steroids wearing off will reduce dose tonight- patient reports he was taking 36 units outpatient d/t some overnight hypoglycemia * Loosened novolog parameters in anticipation of steroids wearing off 08/11 * BSGs within range yesterday, am lantus held for OR, given 50 units last night * BSGs elevated today secondary to IV dexamethasone given in the OR. Novolog parameters tightened with breakfast, received 5 units IV insulin with lunch (loosened correction factor as previous insulin had been given ~2 hours prior/still active) and tightened again with dinner- monitor for further adjustments * Will scale lantus this PM 08/10 * Spencer received 52 units of insulin yesterday (25 were basal) * Fasting BSG this AM acceptable, basal insulin held this in anticipation of toe anticipation today. Basal scale at dinner based on BSG. If receiving steroids in OR, may need additional basal. Second shift [facility] to monitor. * No changes to NovoLog at this time. He continues on vancomycin and cefepime. 08/09: * KAIA is a 64 yo T2DM who presented with ongoing infection of left second toe. * Patient has been started on broad spectrum antibiotics. Podiatry consulted. * Home dose of Lantus was reduced by 50% on admission for NPO status. Patient was ordered a diet for lunch + dinner, then will resume NPO this evening. * BSGs acceptable thus far on current insulin orders. Will continue for now. PLAN FOR INPATIENT GLYCEMIC CONTROL: * Basal insulin * Lantus 40 units HS * Reassess basal in AM * Bolus insulin * NovoLog per scale ACHS or Q6hrs while NPO * Goal Range: Low 110 mg/dL - High 140 mg/dL * Correction Factor: 20 mg/dL/unit * Nutritional / Prandial insulin per carb ratio of 1 unit per 7 grams CHO consumed
[2024-08-12 15:38] VITALS: BP 180/88; PULSE 63; O2SAT 97
--- NOTE | 2024-08-12 15:39 | Discharge Summary ---
Discharge Summary Date of Service August 12, 2024 Principal Dx & Hospital Course #1 = Principal Diagnosis (1) Osteomyelitis of second toe of left foot: Per previous hospitalist notes with addendum: 64-year-old male with past med history significant for type 2 diabetes, diabetic polyneuropathy, dyslipidemia, diabetic retinopathy, CKD stage III, hypertension, left foot drop, bilateral hearing loss and on hearing aids, left eye cataract, thrombocytopenia, varicose veins of left lower extremity presents with ongoing infection of left second toe that has been ongoing for 3 weeks. Osteomyelitis of second toe of left foot Diabetic foot infection Previous cultures grew staph and Pseudomonas Foot Xray: Soft tissue swelling surrounding distal aspect of the second digit. Demineralized distal phalanx greatest at the distal tuft and proximal metaphysis, consistent with osteomyelitis. Deformity of the mid diaphysis of the fifth metatarsal consistent with a chronic fracture. No acute fracture. Plantar calcaneal bone spur. Vascular calcifications. S/p Left 2nd toe amputation on 08/10/24 Follow up OR culture Continue cefepime and vancomycin for now until final cultures 08/12 Blood cultures: Negative Wound culture: MSSA, Stenotrophomonas maltophilia ID service consulted, recommend minocycline 100 mg twice daily until August 23, 2024 to complete 14-day course of antibiotic Wound dressing daily Follow-up with PCP in 1 week Follow-up with production team member Dr. Su in 1 week consider ASA therapy given vascular calcifications seen on foot xray- monitor platelets given thrombocytopenia Diabetes HbA1c 8.3 BG poorly controlled. Discussed with glycemic pharm. Adjustments made to insulin regimen Further management care of PCP on follow-up Hypertension On lisinopril and hydrochlorothiazide BP elevated during admission, up to systolic 170's add Amlodipine 2.5mg po daily Close outpatient follow-up Hypomagnesemia Mg is 1.6 replaced repeat Mg on ff up with PCP next week CKD stage III Creatinine 1.2 Dyslipidemia On rosuvastatin Thrombocytopenia Platelets 98k repeat CBC on ff up with PCP next week DVT prophylaxis SCDs Full code Disposition Discharge to home PCP follow-up in 1 week Follow-up with production team member Dr. Su in 1 week Notes For Next Care Provider Medication Changes From Visit Minocycline 100 mg twice daily until August 23, 2024 Amlodipine 2.5 mg p.o. daily for blood pressure control Admission HPI Per Admitting Provider 64-year-old male with past med history significant for type 2 diabetes, diabetic polyneuropathy, dyslipidemia, diabetic retinopathy, CKD stage III, hypertension, left foot drop, bilateral hearing loss and on hearing aids, left eye cataract, thrombocytopenia, varicose veins of left lower extremity presents with ongoing infection of left second toe. Patient says having this infection ongoing for 3 weeks. Following with podiatry. Finished Bactrim course a week ago. Was feeling better this week, even went for bowling on Saturday and Saturday. But today he started have a lot of pain in the left second toe and was having chills and nausea and was not feeling better so came to the ER today. Patient also seems to have biopsy of the site on July 30 and pathology in our system showing osteomyelitis and osteonecrosis. Denies any chest pain. No shortness of breath. No cough. No headache. No runny nose or sore throat. No abdominal pain. Normal bowel and bladder movements. Hemodynamics are okay. 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 Past medical history. As mentioned above Past surgical history. Contour benign facial bone lesion history. Facial tumor removed left facial paresthesia stool. Bilateral cataracts. Repeat ocular right lateral collateral elbow ligament. Appendectomy. Vasectomy. Social history. . No smoking. No alcohol use. No drug use. Family history. Father had diabetes. Hypertension. Mother had hypertension. Stroke. Maternal grandfather had prostate cancer. Admission Exam Per Admitting Provider General-Not in distress Head- atraumatic Eyes- PERRL. ENT- oropharynx clear Neck- supple, no JVD. Lungs- clear to auscultation no wheezing or crackles Heart- regular rate and rhythm; no murmur, no gallop. Abdomen- normal bowel sounds, soft, nontender, no distension Extremities- Left foot in dressing, no edema seen Neuro- alert, oriented PERRL, Left facial palsy; no dysarthria; moves extremities Discharge Exam General- oriented x 3, not in distress, speaks in sentences with no effort or accessory muscle use Eyes- anicteric Neck- no JVD Lungs- clear breath sounds bilaterally, no rales/wheezes Heart- normal rate, regular rhythm; no murmurs Abdomen- normal bowel sounds, nondistended, soft, nontender Extremities- no pretibial edema, no calf tenderness Left foot-surgical dressing in place, no bleeding or discharge Neuro- alert, oriented x 3; no gross focal neurologic deficits Skin- warm & dry Updated Medication List Medication Instructions Recorded Confirmed Type rosuvastatin 10 mg tablet 10 mg PO QAM 09/10/22 08/08/24 History insulin glargine 100 unit/mL 50 unit subcut QAM 12/10/23 08/08/24 History subcutaneous solution (Lantus U-100 Insulin) dulaglutide 4.5 mg/0.5 mL 4.5 mg subcut WK 08/08/24 08/08/24 History subcutaneous pen injector (Trulicity) insulin aspart U-100 100 unit/mL See Rx Instructions .Route .COMPLEX 08/08/24 08/08/24 History (3 mL) subcutaneous pen lisinopril 20 1 tab PO QAM 08/08/24 08/08/24 History mg-hydrochlorothiazide 12.5 mg tablet amlodipine 2.5 mg tablet 2.5 mg PO DAILY #30 tabs 08/12/24 Rx minocycline 100 mg capsule 100 mg PO BID 12 days #24 caps 08/12/24 Rx Hospital Stay Data Consultations 08/08/24 19:52 ED Decision to Admit Stat 08/09/24 08:00 Consult Podiatry Routine 08/11/24 16:40 Consult Infectious Diseases Routine Procedures Performed Operation Date: 08/10/24 07:00 Actual Procedures p Left Second Toe Amputation(Left) - Dio Su DPM Diagnostic Imagining Performed Laboratory Results WBC 7.12 K/ul (4.8-10.8) 08/12/24 08:01 RBC 4.08 M/uL (4.70-6.10) L 08/12/24 08:01 Hgb 11.3 g/dl (14.0-18.0) L 08/12/24 08:01 Hct 34.1 % (42.0-52.0) L 08/12/24 08:01 MCV 83.6 fL (80.0-100.0) 08/12/24 08:01 MCH 27.7 pg (25.0-34.0) 08/12/24 08:01 MCHC 33.1 g/dL (32.0-36.0) 08/12/24 08:01 RDW Std Deviation 40.7 fL (36.4-46.3) 08/12/24 08:01 RDW Coeff of Miguel 13.3 % (11.5-14.5) 08/12/24 08:01 Plt Count 98 K/uL (130-400) L 08/12/24 08:01 MPV 11.9 fL (9.4-12.4) 08/12/24 08:01 Immature Gran % (Auto) 0.3 % 08/09/24 05:47 Neut % (Auto) 82.9 % 08/09/24 05:47 Lymph % (Auto) 6.1 % 08/09/24 05:47 [place] % (Auto) 7.8 % 08/09/24 05:47 Eos % (Auto) 2.6 % 08/09/24 05:47 Baso % (Auto) 0.3 % 08/09/24 05:47 Neut # (Auto) 5.42 K/uL (1.40-6.50) 08/09/24 05:47 Lymph # (Auto) 0.40 K/uL (1.20-3.40) L 08/09/24 05:47 [place] # (Auto) 0.51 K/uL (0.11-0.59) 08/09/24 05:47 Eos # (Auto) 0.17 K/uL (0.00-0.50) 08/09/24 05:47 Baso # (Auto) 0.02 K/uL (0.00-0.20) 08/09/24 05:47 Immature Gran # (Auto) 0.02 K/uL (0.01-0.20) 08/09/24 05:47 Platelet Estimate Decreased (Normal) L 08/09/24 05:47 ESR 57 mm/hr (0-20) H 08/08/24 19:31 Sodium 138 mmol/L (136-145) 08/12/24 08:01 Potassium 4.6 mmol/L (3.5-5.1) 08/12/24 08:01 Chloride 113 mmol/L (98-107) H 08/12/24 08:01 Carbon Dioxide 20 mmol/L (21-32) L 08/12/24 08:01 Anion Gap 5 (3-11) 08/12/24 08:01 BUN 39 mg/dl (6-23) H 08/12/24 08:01 Creatinine 1.20 mg/dl (0.6-1.4) 08/12/24 08:01 Est Cr Clr Drug Dosing 80.9 ml/min 08/12/24 08:01 eGFR 67.11 08/12/24 08:01 BUN/Creatinine Ratio 32.5 (10-20) H 08/12/24 08:01 Glucose 127 mg/dl (70-99(Fasting)) H 08/12/24 08:01 POC Glucose 171 mg/dl (70-99) H 08/12/24 11:55 Estimat Average Glucose 192 mg/dl 08/09/24 05:47 Hemoglobin A1c 8.3 % (4.5-5.6) H 08/09/24 05:47 Lactate 1.4 mmol/L (0.4-2.0) 08/08/24 19:31 Calcium 8.9 mg/dl (8.6-10.3) 08/12/24 08:01 Phosphorus 2.8 mg/dl (2.5-4.9) 08/12/24 08:01 Magnesium 1.6 mg/dl (1.7-2.4) L 08/12/24 08:01 Total Bilirubin 1.0 mg/dl (0.2-1.0) 08/08/24 19:31 AST 63 U/L (13-39) H 08/08/24 19:31 ALT 65 U/L (7-52) H 08/08/24 19:31 Alkaline Phosphatase 92 U/L (34-104) 08/08/24 19:31 C-Reactive Protein 5.67 mg/dl (0-0.5) H 08/08/24 19:31 Total Protein 8.0 gm/dl (6.0-8.3) 08/08/24 19:31 Albumin 4.0 gm/dl (3.4-5.0) 08/08/24 19: Globulin 4.0 gm/dl (2.5-4.0) 08/08/24 19: Albumin/Globulin Ratio 1.0 (0.9-2) 08/08/24 19:31 Procalcitonin 0.57 ng/ml (0-0.5) H 08/08/24 19:31 Random Vancomycin 15.7 mcg/ml (10-20) 08/10/24 05:26 Impressions Foot X-Ray 08/08/24 18:52 Exam(s): XR LEFT FOOT, 3+ views EXAM: XR Left Foot Complete, 3 or More Views CLINICAL HISTORY: L 2nd toe infection. TECHNIQUE: Frontal, lateral and oblique views of the left foot. COMPARISON: No relevant prior studies available. FINDINGS: Soft tissue swelling surrounding distal aspect of the second digit. Demineralized distal phalanx greatest at the distal tuft and proximal metaphysis, consistent with osteomyelitis. Deformity of the mid diaphysis of the fifth metatarsal consistent with a chronic fracture. No acute fracture. Plantar calcaneal bone spur. Vascular calcifications. IMPRESSION: Soft tissue swelling surrounding distal aspect second digit consistent with cellulitis. Underlying partial destruction of the distal phalanx consistent with osteomyelitis. Old fracture mid diaphysis of the fifth metatarsal. Electronically signed by: Rocael Osorio M.D. 08/09/24 00:23 AM Pending Results Patient Have Any Pending Studies at Discharge: No Discharge Instructions Given to Patient (Per Discharging Provider) PLEASE REFER TO YOUR NEW MEDICATION LIST AND FOLLOW INSTRUCTIONS CAREFULLY. YOUR NEW MEDICATION INCLUDE: Minocycline-antibiotic for toe infection, to be taken until August 23, 2024 Please drink plenty of water. Take a probiotic daily x 3 weeks. Include yogurt in your daily diet. Daily wound dressing changes: with adaptic, 4x4, kerlix, luisito wrap OR optifoam border adhesive dressing PLEASE CALL YOUR PRIMARY CARE PHYSICIAN OR RETURN TO THE ER IF WITH WORSENING OF SYMPTOMS, INCLUDING Increasing pain, bleeding, discharge, swelling, fevers or chills, diarrhea, etc. FOLLOW UP WITH PRIMARY CARE PHYSICIAN OUTLINED ABOVE. Follow-up with surgeon Dr. Su in 1 week. Please call his office for an appointment. Contact information outlined above. Total Time Total Time Spent Total Time Spent (In Minutes): 45 minutes
[2024-08-12] MEDS: MINOCYCLINE HCL 50 MG CAP PO ONE (16:04)
[2024-08-12] MEDS: amLODIPine BESYLATE 5 MG TAB PO ONE (16:04)
[2024-08-12] MEDS ORDERED: LANTUS PER UNIT CHARGE SQ SCH (21:00)
[2024-08-12] MEDS ORDERED: MINOCYCLINE HCL 50 MG CAP PO SCH (21:00)
[2024-08-13] MEDS ORDERED: MINOCYCLINE HCL 50 MG CAP PO SCH (09:00)
== END 2024-08-12 18:05 | disposition home or self-care (01) | DRG 617 ==
LOC: ED 18:40 → SUATTDRO 21:27 → 3N 21:27